=== PATIENT | female | born 1985 | race Caucasian/White ===

== ENCOUNTER → 2018-12-15 17:43 | Outpatient (CLI) | payer MEDICARE, OTHER, SELFPAY ==
[2018-12-15 18:29] LABS: Basophils # 0.1 K/mm3 (0-0.2); Basophils % 0.6 % (0.1-2.0); Eosinophils # 0.4 K/mm3 (0.0-0.4); Eosinophils % 3.2 % (0.1-12.0); Hematocrit 46.3 % (37.0-47.0); Hemoglobin 15.4 g/dL (12.2-16.2); Lymphocytes # 3.3 K/mm3 (0.7-4.5); Lymphocytes % 26.4 % (10-50); Mean Corpuscular HGB Conc 33.3 g/dL (31.8-35.4); Mean Corpuscular Hemoglobin 30.2 pg (27.0-31.2); Mean Corpuscular Volume 90.8 fl (81-99); Mean Platelet Volume 7.6 fl (7.4-10.4); Monocytes # 0.7 K/mm3 (0.1-1.0); Monocytes % 5.3 % (1.7-9.3); Neutrophils # 8.1 K/mm3 (1.8-7.8); Neutrophils % 64.5 % (37.0-80.0); Platelet Count 353 K/mm3 (142-424); Red Cell Distribution Width 12.5 % (11.5-17.5); White Blood Count 12.6 K/mm3 (4.8-10.8)
[2018-12-15 19:29] LABS: Erythrocyte Sedimentation Rate 13 mm/hr (0-20)
[2018-12-15 19:55] LABS: Alanine Aminotransferase 28 U/L (12-78); Albumin Level 4.9 gm/dL (3.4-5.0); Albumin/Globulin Ratio 1.4 (1.1-1.8); Alkaline Phosphatase 70 U/L (46-116); Anion Gap 16.6 mEq/L (5-15); Aspartate Amino Transferase 16 U/L (15-37); Bilirubin,Total 0.5 mg/dL (0.2-1.0); Blood Urea Nitrogen 16 mg/dL (7-18); Calcium 10.2 mg/dL (8.5-10.1); Carbon Dioxide 26 mmol/L (21.0-32.0); Chloride 101 mmol/L (98-107); Estimated Glomerular Filt Rate 72 ml/min (>60); Free T4 (Free Thyroxine) 1.52 ng/dl (0.76-1.46); GFR (African American) 87 ML/MIN (>60); Globulin 3.6 gm/dl (1.3-3.2); Glucose 77 mg/dL (74-106); Potassium 4.6 mmoL/L (3.5-5.1); Sodium 139 mmol/L (136-145); Thyroid Stimulating Hormone 0.01 uIU/ml (0.358-3.740); Total Protein,Serum 8.5 gm/dL (6.4-8.2)
[2018-12-18 11:41] LABS: Vitamin D 25 Hydroxy 26.9 ng/mL (30.0-100.0)
== END ==
PROVIDERS: Visit Provider Emergency Medicine
DX: K59.00 Constipation, unspecified (principal); R10.9 Unspecified abdominal pain; I10 Essential (primary) hypertension
CPT/HCPCS: 80053; 82652; 84439; 84443; 85025; 85651

== ENCOUNTER → 2021-07-19 11:09 | Outpatient (CLI) | payer MEDICARE, OTHER, SELFPAY ==
[2021-07-19 12:13] LABS: Basophils # 0.1 K/mm3 (0-0.2); Basophils % 1.1 % (0.1-2.0); Eosinophils # 0.8 K/mm3 (0.0-0.4); Eosinophils % 7.6 % (0.1-12.0); Hematocrit 46.1 % (37.0-47.0); Hemoglobin 15.8 g/dL (12.2-16.2); Lymphocytes % 29.2 % (10-50); Mean Corpuscular HGB Conc 34.4 g/dL (31.8-35.4); Mean Corpuscular Hemoglobin 31.2 pg (27.0-31.2); Mean Corpuscular Volume 90.8 fl (81-99); Mean Platelet Volume 7.3 fl (7.4-10.4); Monocytes # 0.6 K/mm3 (0.1-1.0); Monocytes % 5.5 % (1.7-9.3); Neutrophils # 5.8 K/mm3 (1.8-7.8); Neutrophils % 56.5 % (37.0-80.0); Platelet Count 303 K/mm3 (142-424); Red Blood Count 5.07 M/mm3 (4.20-5.40); Red Cell Distribution Width 13.2 % (11.5-17.5); White Blood Count 10.3 K/mm3 (4.8-10.8)
[2021-07-19 13:08] LABS: Alanine Aminotransferase 47 U/L (12-78); Albumin Level 4.9 g/dl (3.5-5.0); Albumin/Globulin Ratio 1.8 (1.1-1.8); Alkaline Phosphatase 73 U/L (38-126); Anion Gap 15.3 mEq/L (5-15); Aspartate Amino Transferase 39 U/L (14-36); Bilirubin,Total 0.7 mg/dl (0.2-1.3); Blood Urea Nitrogen 16 mg/dl (7-17); Calcium 9.3 mg/dl (8.4-10.2); Carbon Dioxide 21 mmol/L (22.0-30.0); Chloride 103 mmol/L (98-107); Chol/HDL Ratio 6.5 (1-3.5); Cholesterol 183 mg/dl (140-200); Estimated Glomerular Filt Rate 95 ml/min (>60); GFR (African American) 115 ML/MIN (>60); Globulin 2.8 g/dL (1.3-3.2); Glucose 92 mg/dl (74-100); HDL Cholesterol 28 mg/dl (40-60); Potassium 4.3 mmoL/L (3.5-5.1); Sodium 135 mmol/L (136-145); Total Protein,Serum 7.7 g/dl (6.3-8.2); Triglycerides 251 mg/dl (30-150); VLDL Cholesterol 50 mg/dL (0-40)
[2021-07-19 13:19] LABS: Direct LDL Cholesterol 87.53 mg/dL (100-129)
[2021-07-19 13:39] LABS: Thyroid Stimulating Hormone 2.83 uIU/mL (0.465-4.68)
== END ==
PROVIDERS: PCP Internal Medicine; Visit Provider Internal Medicine
DX: E78.5 Hyperlipidemia, unspecified (principal); G40.909 Epilepsy, unspecified, not intractable, without status epilepticus; E03.9 Hypothyroidism, unspecified; K58.1 Irritable bowel syndrome with constipation
CPT/HCPCS: 36415; 80053; 80061; 84443; 85025

== ENCOUNTER 2021-07-30 21:14 | Emergency (ER) | payer MEDICARE, OTHER, SELFPAY ==
[2021-07-30 21:17] VITALS: BP 127/80; PULSE 83; RESP 16; TEMP 36.8; O2SAT 98; BMI 27.4
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
--- NOTE | 2021-07-30 21:47 | PC.NURSE ---
PT REFUSED IV STICK.
[2021-07-30 21:49] VITALS: BP 119/74; PULSE 75; O2SAT 98
[2021-07-30 21:58] LABS: Microscopic, Urine URINE MICROSCOPIC (MICROSCOPIC)
[2021-07-30 22:00] VITALS: BP 118/77; PULSE 76
[2021-07-30 22:01] LABS: Appearance,Urine CLOUDY (Clear); Bilirubin,Urine Negative (Negative); Blood, Urine 3+ (Negative); Color,Urine YELLOW (Yellow); Glucose,Urine (UA) Negative (Negative); Ketones,Urine Negative (Negative); Leukocyte Esterase,Urine TRACE (Negative); Nitrate,Urine Negative (Negative); Protein,Urine Negative (Negative); Urobilinogen,Urine 0.2 EU/dl (0.2)
[2021-07-30 22:04] LABS: Urine Pregnancy, HCG Qual. Negative (Negative)
[2021-07-30 22:32] LABS: Bacteria,Urine 3+ /lpf
--- NOTE | 2021-07-30 22:33 | PC.NURSE ---
PT REPORTS NO FURTHER COMPLAINTS. FAMILY AT BEDSIDE. WCM.
[2021-07-30 22:35] VITALS: BP 127/78; PULSE 69; O2SAT 98
[2021-07-31 00:23] VITALS: BP 124/81; PULSE 67; RESP 18; TEMP 36.8; O2SAT 98
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
== END 2021-07-31 00:31 | disposition home or self-care (01) ==
PROVIDERS: Emergency Provider Emergency Medicine; PCP Internal Medicine
DX: S06.0X0A Concussion without loss of consciousness, initial encounter (principal); S16.1XXA Strain of muscle, fascia and tendon at neck level, initial encounter; E03.9 Hypothyroidism, unspecified; G40.909 Epilepsy, unspecified, not intractable, without status epilepticus; Z88.0 Allergy status to penicillin; Z79.3 Long term (current) use of hormonal contraceptives; V89.2XXA Person injured in unspecified motor-vehicle accident, traffic, initial encounter
CPT/HCPCS: 70450; 71046; 72125; 72170; 81001; 81025; 87086; 99285

== ENCOUNTER → 2022-09-17 10:36 | Outpatient (CLI) | payer MEDICARE, OTHER, SELFPAY ==
[2022-09-17 11:07] LABS: Basophils # 0.1 K/mm3 (0-0.2); Basophils % 0.8 % (0.1-2.0); Eosinophils # 0.5 K/mm3 (0.0-0.4); Eosinophils % 4.5 % (0.1-12.0); Hematocrit 44.2 % (37.0-47.0); Hemoglobin 14.5 g/dL (12.2-16.2); Lymphocytes # 2.6 K/mm3 (0.7-4.5); Mean Corpuscular HGB Conc 32.8 g/dL (31.8-35.4); Mean Corpuscular Hemoglobin 30.3 pg (27.0-31.2); Mean Corpuscular Volume 92.5 fl (81-99); Monocytes # 0.6 K/mm3 (0.1-1.0); Monocytes % 5.6 % (1.7-9.3); Neutrophils # 7.1 K/mm3 (1.8-7.8); Neutrophils % 65.2 % (37.0-80.0); Platelet Count 297 K/mm3 (142-424); Red Blood Count 4.77 M/mm3 (4.20-5.40); Red Cell Distribution Width 13.2 % (11.5-17.5); White Blood Count 10.9 K/mm3 (4.8-10.8)
[2022-09-17 11:28] LABS: HCG Qualitative, Serum Positive (Negative)
[2022-09-17 11:32] LABS: Alanine Aminotransferase 29 U/L (12-78); Albumin Level 4.7 g/dl (3.5-5.0); Albumin/Globulin Ratio 1.8 (1.1-1.8); Alkaline Phosphatase 59 U/L (38-126); Anion Gap 16.5 mEq/L (5-15); Aspartate Amino Transferase 30 U/L (14-36); Bilirubin,Total 0.6 mg/dl (0.2-1.3); Blood Urea Nitrogen 14 mg/dl (7-17); Calcium 9.2 mg/dl (8.4-10.2); Carbon Dioxide 23 mmol/L (22.0-30.0); Chloride 102 mmol/L (98-107); Estimated Glomerular Filt Rate 81 ml/min (>60); GFR (African American) 98 ML/MIN (>60); Globulin 2.6 g/dL (1.3-3.2); Glucose 93 mg/dl (74-100); Potassium 4.5 mmoL/L (3.5-5.1); Sodium 137 mmol/L (136-145); Total Protein,Serum 7.3 g/dl (6.3-8.2)
[2022-09-17 12:00] LABS: Thyroid Stimulating Hormone 8.06 uIU/mL (0.465-4.68)
== END ==
PROVIDERS: PCP Internal Medicine; Visit Provider Internal Medicine
DX: N91.1 Secondary amenorrhea (principal); K92.0 Hematemesis; E03.9 Hypothyroidism, unspecified
CPT/HCPCS: 36415; 80053; 84443; 84703; 85025

== ENCOUNTER → 2022-09-20 14:23 | Outpatient (CLI) | payer MEDICARE, OTHER, SELFPAY | PROVIDERS: PCP Internal Medicine; Visit Provider Obstetrics & Gynecology | DX: Z34.91 Encounter for supervision of normal pregnancy, unspecified, first trimester (principal) ==

== ENCOUNTER → 2022-09-24 14:02 | Outpatient (CLI) | payer MEDICARE, OTHER, SELFPAY | PROVIDERS: PCP Internal Medicine; Visit Provider Obstetrics & Gynecology | DX: N39.0 Urinary tract infection, site not specified (principal) | CPT/HCPCS: 87086 ==

== ENCOUNTER → 2022-10-11 11:25 | Outpatient (CLI) | payer MEDICARE, OTHER, SELFPAY ==
[2022-10-11 11:50] LABS: Basophils # 0.1 K/mm3 (0-0.2); Basophils % 0.7 % (0.1-2.0); Eosinophils # 0.6 K/mm3 (0.0-0.4); Hematocrit 44.9 % (37.0-47.0); Hemoglobin 14.5 g/dL (12.2-16.2); Lymphocytes # 2.2 K/mm3 (0.7-4.5); Lymphocytes % 21.7 % (10-50); Mean Corpuscular HGB Conc 32.2 g/dL (31.8-35.4); Mean Corpuscular Hemoglobin 29.9 pg (27.0-31.2); Mean Corpuscular Volume 92.8 fl (81-99); Mean Platelet Volume 7.6 fl (7.4-10.4); Monocytes # 0.4 K/mm3 (0.1-1.0); Monocytes % 4.4 % (1.7-9.3); Neutrophils # 6.8 K/mm3 (1.8-7.8); Neutrophils % 67.3 % (37.0-80.0); Platelet Count 300 K/mm3 (142-424); Red Blood Count 4.84 M/mm3 (4.20-5.40); Red Cell Distribution Width 13.2 % (11.5-17.5); White Blood Count 10.1 K/mm3 (4.8-10.8)
[2022-10-11 13:57] LABS: Thyroid Stimulating Hormone 6.91 uIU/mL (0.465-4.68)
[2022-11-25 09:52] LABS: Hepatitis B Surface Antigen Negative; Hepatitis C Antibody Non Reactive
[2022-11-25 09:53] LABS: Rubella Antibodies, IgG 1.56
== END ==
PROVIDERS: PCP Internal Medicine; Visit Provider Obstetrics & Gynecology
DX: E03.9 Hypothyroidism, unspecified; R09.89 Other specified symptoms and signs involving the circulatory and respiratory systems; Z34.91 Encounter for supervision of normal pregnancy, unspecified, first trimester; Z3A.09 9 weeks gestation of pregnancy
CPT/HCPCS: 36415; 84443; 85025; 86762; 86850; 87340; 87380

== ENCOUNTER → 2022-12-27 10:53 | Outpatient (CLI) | payer MEDICARE, OTHER, SELFPAY | PROVIDERS: PCP Internal Medicine; Visit Provider Obstetrics & Gynecology | DX: R09.89 Other specified symptoms and signs involving the circulatory and respiratory systems (principal) | CPT/HCPCS: 36415; 84443 ==

== ENCOUNTER → 2023-01-17 08:14 | Outpatient (CLI) | payer MEDICARE, OTHER, SELFPAY ==
[2023-01-17 08:55] LABS: Basophils # 0.1 K/mm3 (0-0.2); Basophils % 0.5 % (0.1-2.0); Eosinophils # 0.9 K/mm3 (0.0-0.4); Eosinophils % 5.9 % (0.1-12.0); Hematocrit 38.4 % (37.0-47.0); Hemoglobin 12.8 g/dL (12.2-16.2); Lymphocytes % 21.2 % (10-50); Mean Corpuscular HGB Conc 33.2 g/dL (31.8-35.4); Mean Corpuscular Hemoglobin 30.2 pg (27.0-31.2); Mean Corpuscular Volume 91.1 fl (81-99); Mean Platelet Volume 7.9 fl (7.4-10.4); Monocytes # 0.7 K/mm3 (0.1-1.0); Monocytes % 4.6 % (1.7-9.3); Neutrophils # 9.7 K/mm3 (1.8-7.8); Neutrophils % 67.8 % (37.0-80.0); Platelet Count 341 K/mm3 (142-424); Red Blood Count 4.22 M/mm3 (4.20-5.40); Red Cell Distribution Width 13.8 % (11.5-17.5); White Blood Count 14.4 K/mm3 (4.8-10.8)
[2023-01-17 09:21] LABS: Glucose,Fasting 95 mg/dl (74-100)
[2023-01-17 10:40] LABS: Glucose 1 Hour 144 mg/dL (74-100)
== END ==
PROVIDERS: PCP Internal Medicine; Visit Provider Obstetrics & Gynecology
DX: O24.410 Gestational diabetes mellitus in pregnancy, diet controlled; O99.282 Endocrine, nutritional and metabolic diseases complicating pregnancy, second trimester; E03.9 Hypothyroidism, unspecified; O99.352 Diseases of the nervous system complicating pregnancy, second trimester; G40.909 Epilepsy, unspecified, not intractable, without status epilepticus; Z3A.25 25 weeks gestation of pregnancy
CPT/HCPCS: 36415; 82951; 85025

== ENCOUNTER → 2023-01-31 07:32 | Outpatient (CLI) | payer MEDICARE, OTHER, SELFPAY ==
[2023-01-31 08:15] LABS: Glucose,Fasting 100 mg/dl (74-100)
[2023-01-31 09:50] LABS: Glucose 1 Hour 214 mg/dL (74-100)
[2023-01-31 10:21] LABS: Glucose 2 Hour 179 mg/dL (74-100)
[2023-01-31 12:17] LABS: Glucose 3 Hour 123 mg/dL (74-100)
== END ==
PROVIDERS: PCP Internal Medicine; Visit Provider Obstetrics & Gynecology
DX: Z3A.27 27 weeks gestation of pregnancy; O24.419 Gestational diabetes mellitus in pregnancy, unspecified control; O44.42 Low lying placenta NOS or without hemorrhage, second trimester; O99.612 Diseases of the digestive system complicating pregnancy, second trimester; O99.282 Endocrine, nutritional and metabolic diseases complicating pregnancy, second trimester; O99.352 Diseases of the nervous system complicating pregnancy, second trimester; E03.9 Hypothyroidism, unspecified; K58.8 Other irritable bowel syndrome; G40.909 Epilepsy, unspecified, not intractable, without status epilepticus
CPT/HCPCS: 36415; 82951

== ENCOUNTER → 2023-02-21 10:09 | Outpatient (CLI) | payer MEDICARE, OTHER, SELFPAY ==
[2023-02-21 11:43] LABS: Thyroid Stimulating Hormone 1.64 uIU/mL (0.465-4.68)
== END ==
PROVIDERS: PCP Internal Medicine; Visit Provider Obstetrics & Gynecology
DX: R09.89 Other specified symptoms and signs involving the circulatory and respiratory systems (principal); Z34.93 Encounter for supervision of normal pregnancy, unspecified, third trimester; Z3A.30 30 weeks gestation of pregnancy
CPT/HCPCS: 36415; 84443

== ENCOUNTER 2023-03-11 17:12 | Outpatient (CLI) | payer MEDICARE, OTHER, SELFPAY ==
[2023-03-11 17:36] VITALS: BP 130/69; PULSE 94; RESP 18; TEMP 36.6; O2SAT 99; BMI 27.1
--- NOTE | 2023-03-11 18:00 | PC.NURSE ---
pt states she is unable to void at this time d/t voiding prior to coming in,
== END 2023-03-11 18:05 | disposition home or self-care (01) ==
LOC: OBOUT 17:14 → OB 17:15
PROVIDERS: PCP Internal Medicine; Visit Provider Obstetrics & Gynecology
DX: O26.893 Other specified pregnancy related conditions, third trimester (principal); Z3A.33 33 weeks gestation of pregnancy
CPT/HCPCS: 59025

== ENCOUNTER 2023-03-18 17:23 | Outpatient (CLI) | payer MEDICARE, OTHER, SELFPAY ==
[2023-03-18 17:41] VITALS: BP 110/77; PULSE 77; RESP 18; TEMP 36.8; O2SAT 99; BMI 26.9
== END 2023-03-18 18:26 | disposition home or self-care (01) ==
LOC: OBOUT 17:26 → OB 17:26
PROVIDERS: PCP Internal Medicine; Visit Provider Obstetrics & Gynecology
DX: O26.893 Other specified pregnancy related conditions, third trimester (principal); Z3A.34 34 weeks gestation of pregnancy
CPT/HCPCS: 59025; G0463

== ENCOUNTER 2023-03-21 10:28 | Outpatient (CLI) | payer MEDICARE, OTHER, SELFPAY ==
[2023-03-21 10:39] VITALS: BMI 26.9
[2023-03-21 10:51] VITALS: BP 110/76; PULSE 80; RESP 16; TEMP 36.6; O2SAT 95; BMI 26.9
== END 2023-03-21 11:14 | disposition home or self-care (01) ==
LOC: OBOUT 10:30 → OB 10:31
PROVIDERS: PCP Internal Medicine; Visit Provider Obstetrics & Gynecology
DX: O26.893 Other specified pregnancy related conditions, third trimester (principal); Z3A.34 34 weeks gestation of pregnancy
CPT/HCPCS: 59025; G0463

== ENCOUNTER 2023-03-25 17:13 | Outpatient (CLI) | payer MEDICARE, OTHER, SELFPAY ==
[2023-03-25 17:39] VITALS: BP 110/78; PULSE 80; RESP 18; TEMP 36.7; O2SAT 99; BMI 26.9
== END 2023-03-25 18:10 | disposition home or self-care (01) ==
LOC: OBOUT 17:17 → OB 17:18
PROVIDERS: PCP Internal Medicine; Visit Provider Obstetrics & Gynecology
DX: O26.893 Other specified pregnancy related conditions, third trimester (principal); Z3A.35 35 weeks gestation of pregnancy
CPT/HCPCS: 59025; G0463

== ENCOUNTER 2023-04-01 10:26 | Inpatient (IN) | payer MEDICARE, OTHER, SELFPAY ==
[2023-04-01 08:29] VITALS: BMI 27.1
[2023-04-01 08:57] VITALS: BMI 27.1
[2023-04-01 09:12] LABS: Fetal Membrane Rupture (Rapid) Positive (Negative)
--- NOTE | 2023-04-01 10:31 | P.HP_ITS ---
History of Present Illness *Admission Date: 04/01/23 *Reason for visit:: premature rupture of membranes *History of present illness: Rula is a 37-year-old G2, P1 who presented to labor and delivery with leakage of fluid. AmniSure was found to be positive. On presentation the patient was 36 weeks and 0 days gestation based on 9-week ultrasound. She received her care with Dr. Cevallos and was complicated by GDMA2, depression, epilepsy, hypothyroidism, and IBS. On presentation patient endorsed good movement and denies any vaginal bleeding. B+, antibody negative, rubella immune, hepatitis B negative, hepatitis C negative 1 hour GTT: 144 3hr: 100/214/179/123 GBS unknown PFSH PFSH Disclaimer: The information contained in this section may have been updated after the patient was seen, as this information can be updated by other users. Medical History (Updated 04/02/23 @ 00:53 by Sherri Gonzalez DO) AMA (advanced maternal age) multigravida 35+ Depression affecting Epilepsy affecting Gestational diabetes mellitus Hypothyroidism affecting Irritable bowel syndrome during Low lying placenta nos or without hemorrhage, second trimester Surgical History History of tonsillectomy Family History Other Anemia Asthma Cancer Diabetes Heart attack Hyperlipidemia Hypertension Thyroid disorder Social History (Updated 04/01/23 @ 14:15 by Heather Romero RN) Smoking Status: Never smoker alcohol intake: never substance use type: denies use current occupational status: unemployed Travel in the last 8 weeks: None Review of Systems Review of Systems Review of systems (narrative): Review of Systems Constitutional: Denies fever, chills, and sweats Eyes: Denies vision change/ pain Respiratory: Denies cough and shortness of breath Cardiovascular: Denies chest pain and lightheadedness Gastrointestinal: denies abdominal pain or contractions. Denies nausea, vomiting. Genitourinary: Denies dysuria and incontinence. endorses LOF Musculoskeletal: Denies shoulder pain and back pain Neurological: Denies change in speech or headaches Meds Home Medications and Allergies Home Medications Medication Instructions Recorded Confirmed Type aspirin 81 mg tablet,delayed 81 mg PO DAILY #30 tabs 09/24/22 04/01/23 Rx release (Adult Low Dose Aspirin) folic acid 1 mg tablet 1 mg PO BID 09/24/22 04/01/23 History vits no.126-ferrous fum 1 tab PO DAILY #30 tabs 09/24/22 04/01/23 Rx 28 mg iron-folic acid 800 mcg tablet (Classic ) levothyroxine 125 mcg tablet 125 mcg PO DAILY #30 tabs 10/14/22 04/01/23 Rx (Synthroid) lamotrigine 100 mg tablet 100 mg PO BID Epilepsy 11/01/22 04/01/23 History blood-glucose meter #1 ea 01/31/23 04/01/23 Rx metformin 500 mg tablet,extended 500 mg PO .with dinner #30 tabs 03/28/23 04/01/23 Rx release 24 hr New Prescriptions to Start Prescriptions: Allergies Allergy/AdvReac Type Severity Reaction Status Date / Time montelukast [From Singulair] Allergy Mild Rash Verified 03/28/23 10:19 Penicillins Allergy Unknown Unknown Verified 04/01/23 10:33 allergy reaction Exam Data for Last 24 hours Vital signs and Labs for Last 24 Hours: Laboratory Results - last 24 hr 04/01/23 08:47: Membrane Rupture Positive A I & O for Last 24 hours: Intake & Output 03/29/23 03/30/23 03/31/23 04/01/23 23:59 23:59 23:59 23:59 Weight 163 lb Narrative: General: patient is alert oriented in no acute distress and responds appropriately to questions. HEENT: NCAT, EOMI, moist mucous membranes, neck supple with full ROM Cardiovascular: RRR +S1/S2, no murmurs or rubs Pulmonary: Clear to auscultation bilaterally, nonlabored breathing, symmetric chest rise Abdominal: Gravid abdomen appropriate for gestation. No guarding, rebound, or tenderness noted. SVE on admission: closed, thick, posterior, firm. Extremities: no edema, no tenderness or cyanosis noted Skin: Normal turgor, intact, warm. Negative for erythema, pallor, petechia, or lesions Neurologic: Negative for sensory or motor deficit Psychiatric: Normal affect, normal thought process, good judgment and insight, no depression or anxious mood appreciated. *Routine HEENT Exam Head: Present normocephalic and atraumatic Eye: Present EOMI, PERRL and normal accommodation; Absent conjunctival icterus, scleral injection, nystagmus or exophthalmos ENT: Present mucous membranes moist *Routine Respiratory Exam Respiratory: Present CTA bilaterally, normal respiratory effort, able to speak in complete sentences and symmetric chest movement; Absent accessory muscle use, decreased breath sounds, rales, respiratory distress, wheezes, distant breath sounds or diminished air movement *Routine Cardiovascular Exam Cardiovascular: Present RRR, Normal S1 and Normal S2; Absent murmur or gallop *Routine Abdominal Exam Abdominal: Present soft and normoactive bowel sounds; Absent tenderness, distended, rebound or guarding *Routine Rectal Exam Rectal:: deferred *Routine Genitalia Exam Genitalia:: normal female Assessment and Plan *Assessment and plan (1) Depression affecting : Status: Acute Category: Medical Code(s): O99.340 - Other mental disorders complicating , unspecified trimester; F32.A - Depression, unspecified (2) Gestational diabetes mellitus: Problem Comment: Metformin 500 mg at dinner time started 03/28/20 Status: Acute Category: Medical Code(s): O24.419 - Gestational diabetes mellitus in , unspecified control (3) Irritable bowel syndrome during : Status: Acute Category: Medical Code(s): O99.619 - Diseases of the digestive system complicating , unspecified trimester; K58.9 - Irritable bowel syndrome without diarrhea (4) Hypothyroidism affecting : Status: Acute Qualifiers: Trimester: first trimester Qualified Code(s): O99.281 - Endocrine, nutritional and metabolic diseases complicating , first trimester; E03.9 - Hypothyroidism, unspecified Category: Medical Code(s): O99.280 - Endocrine, nutritional and metabolic diseases complicating , unspecified trimester; E03.9 - Hypothyroidism, unspecified (5) Epilepsy affecting : Status: Acute Qualifiers: Trimester: first trimester Qualified Code(s): O99.351 - Diseases of the nervous system complicating , first trimester; G40.909 - Epilepsy, unspecified, not intractable, without status epilepticus Category: Medical Code(s): O99.350 - Diseases of the nervous system complicating , unspecified tri mester; G40.909 - Epilepsy, unspecified, not intractable, without status epilepticus (6) AMA (advanced maternal age) multigravida 35+: Status: Acute Qualifiers: Trimester: first trimester Qualified Code(s): O09.521 - Supervision of elderly multigravida, first trimester Category: Medical Code(s): O09.529 - Supervision of elderly multigravida, unspecified trimester (7) : Status: Acute Category: Medical Code(s): Z34.90 - Encounter for supervision of normal , unspecified, unspecified trimester (8) Premature rupture of membranes: Status: Acute Category: Medical Code(s): O42.90 - Premature rupture of membranes, unspecified as to length of time between rupture and onset of labor, unspecified weeks of gestation Plan #Premature rupture of membranes #36weeks gestation #AMA - Monitor vitals - Admit to L&D for induction of labor - Plan for induction with 25mcg of PO cytotec [id number] per protocol - External FHR and TOCO monitor - Blood type: B+ - Initiate GBS prophylaxis with Ancef (PCN allergy) 1g q8hrs per protocol secondary to gestational age <37weeks - Hemoglobin: 12.6, Plt: 312 - Plan for epidural - Anticipate vaginal delivery of female infant: Joan Aj - HIV and RPR labs ordered #Gestational diabetes -Continue accuchecks [id number] then q2 in active labor (at 6cm) -Plan for a 6wk 2hr 75g GTT -Will discontinue accuchecks and metformin #Depression -Well controlled at this time -EDPS prior to discharge -Screen at 2wk visit -Admission Nurse Coordinator on baby blues and depression prior to discharge #IBS -Well controlled at this time #Hypothyroidism -Continue current home medication #Epilepsy -Continue current home medication
--- NOTE | 2023-04-01 10:42 | US_ITS ---
PROCEDURE: US OB LIMITED POSITION CLINICAL INDICATION: Rupture of Membranes COMPARISON: No exams were available for comparison FINDINGS: Limited transabdominal sonographic images of the pelvis were obtained. The following parameters are obtained: From her established due date she is 36weeks 0 days Viable fetus in the cephalic presentation. heart rate: 133bpm bpm. IMPRESSION: 1. Fetus in the cephalic presentation. 2. heart tones are present. Dictated by: Chuy Huang MD 04/02/2023 10:33 Chuy Huang MD in OV 04/02/2023 10:33
[2023-04-01 11:21] LABS: Microscopic, Urine URINE MICROSCOPIC (MICROSCOPIC)
[2023-04-01 11:24] LABS: Appearance,Urine SL CLOUDY (Clear); Bilirubin,Urine Negative (Negative); Blood, Urine 2+ (Negative); Color,Urine YELLOW (Yellow); Glucose,Urine (UA) Negative (Negative); Ketones,Urine Negative (Negative); Leukocyte Esterase,Urine TRACE (Negative); Nitrate,Urine Negative (Negative); Protein,Urine Negative (Negative); Specific Gravity, Urine 1.015 (1.005-1.030); Urobilinogen,Urine 0.2 EU/dl (0.2)
[2023-04-01 11:26] LABS: Basophils # 0.1 K/mm3 (0-0.2); Basophils % 0.4 % (0.1-2.0); Eosinophils # 0.6 K/mm3 (0.0-0.4); Eosinophils % 4.1 % (0.1-12.0); Hematocrit 35.6 % (37.0-47.0); Hemoglobin 12.6 g/dL (12.2-16.2); Lymphocytes # 2.5 K/mm3 (0.7-4.5); Lymphocytes % 16.2 % (10-50); Mean Corpuscular HGB Conc 35.3 g/dL (31.8-35.4); Mean Corpuscular Hemoglobin 31.3 pg (27.0-31.2); Mean Corpuscular Volume 88.7 fl (81-99); Mean Platelet Volume 7.1 fl (7.4-10.4); Monocytes # 0.7 K/mm3 (0.1-1.0); Monocytes % 4.5 % (1.7-9.3); Neutrophils # 11.6 K/mm3 (1.8-7.8); Neutrophils % 74.8 % (37.0-80.0); Platelet Count 312 K/mm3 (142-424); Red Blood Count 4.02 M/mm3 (4.20-5.40); Red Cell Distribution Width 14.3 % (11.5-17.5); White Blood Count 15.6 K/mm3 (4.8-10.8)
[2023-04-01] MEDS: LACTATED RINGERS 1000ML 1,000 ML 250 ML IV (11:29)
[2023-04-01] MEDS: miSOPROStol 100MCG TABLET 25 MCG PO ×2 (11:30→15:40)
[2023-04-01] MEDS: DEXTROSE 5%-LACTATED RINGERS 1,000 ML 125 ML IV ×2 (11:30→19:51)
[2023-04-01 11:33] LABS: Squamous Epithelial Cell,Urine Occasional #/hpf (0-5); WBC,Urine Occasional #/hpf (0-3)
[2023-04-01 11:34] LABS: Bacteria,Urine Trace /lpf
[2023-04-01 11:36] LABS: MANUAL DIFFERENTIAL MANUAL DIFFERENTIAL (MANUAL DIFF)
[2023-04-01 11:43] LABS: Glucose,Random 83 mg/dL (74-100)
[2023-04-01] MEDS: CEFAZOLIN SODIUM 2 GM in 0.9 % SODIUM CHLORIDE 100 ML IV (12:00)
[2023-04-01 12:07] LABS: Eosinophils % 5 % (0-3); Lymphocytes % 20 % (10-50); Monocytes % 5 % (2-9); Neutrophils % 70 % (42-76); Platelet Estimate Normal; RBC Morphology Normal; Total Cells Counted 100
[2023-04-01] MEDS: BUTORPHANOL TARTRATE 1 MG/ML VIAL IV (15:11)
[2023-04-01 16:58] LABS: POC Glucose,Bedside 100 (70-110)
--- NOTE | 2023-04-01 19:24 | P.PNANES_ITS ---
[facility] Disclaimer: The information contained in this section may have been updated after the patient was seen, as this information can be updated by other users. Medical History AMA (advanced maternal age) multigravida 35+ Depression affecting Epilepsy affecting Gestational diabetes mellitus Hypothyroidism affecting Irritable bowel syndrome during Low lying placenta nos or without hemorrhage, second trimester Surgical History History of tonsillectomy Family History Other Anemia Asthma Cancer Diabetes Heart attack Hyperlipidemia Hypertension Thyroid disorder Social History (Updated 04/01/23 @ 14:15 by Heather Romero RN) Smoking Status: Never smoker alcohol intake: never substance use type: denies use current occupational status: unemployed Travel in the last 8 weeks: None [facility] Anesthesia Checklist Patient Identification Patient Identification: Arm Band Structural Data Admitted From: Inpatient Planned Operative Procedure/s: Labor Epidural Consent for Planned Operative Procedure(s) Verified: Yes Verified Documents: Surgical Consent and History and Physical Additional verifications Anesthesia Reactions: No Airway Assessment Mallampati Score:: Class II C-Spine Mobility Assessed: Yes TMJ Mobility Assessed: Yes Dentition: Good Dentition Neurological Assessment Level of Consciousness: Awake and Alert Anesthesia Plan Anesthesia Risk discussed: Yes Anesthesia Plan: Verified ASA Class: II Anesthesia Type: Epidural
[2023-04-01 20:58] LABS: POC Glucose,Bedside 96 (70-110)
[2023-04-01] MEDS: lamoTRIgine 100MG TABLET 100 MG PO (20:59)
[2023-04-01] MEDS: CEFAZOLIN SODIUM 1 GM in 0.9 % SODIUM CHLORIDE 50 ML IV (20:59)
[2023-04-01 21:06] LABS: Barbiturates Screen,Urine Negative ng/ml (<200); Benzodiazepines Screen,Urine Negative ng/ml (<200)
[2023-04-01 21:07] LABS: Amphetamine/Metha Screen,Urine Negative ng/ml (<1000)
[2023-04-01 21:08] LABS: Cannabinoid Screen,Urine Negative ng/ml (<50); Methadone Screen,Urine Negative ng/ml (<300)
[2023-04-01 21:09] LABS: Cocaine Screen,Urine Negative ng/ml (<300)
[2023-04-01 21:11] LABS: Phencyclidine Screen,Urine Negative ng/ml (<25)
[2023-04-01 21:12] LABS: Opiate Screen,Urine Negative ng/ml (<300)
[2023-04-01 22:58] LABS: POC Glucose,Bedside 104 (70-110)
[2023-04-02 00:32] LABS: Cord Blood PH 7.35 (7.35-7.45)
[2023-04-02] MEDS: OXYTOCIN/RINGERS LACTATE 30 UNITS/500 ML BAG 40 UNITS IV (00:45)
--- NOTE | 2023-04-02 00:59 | EXP.DN ---
Delivery Note Delivery Date:: 04/02/23 Delivery Time:: 00:21 Anesthesia Type: Epidural Was labor medically induced?: Yes Induction method: per misoprostol protocol Gestational age (weeks): 36 Infant delivered prior to 39 weeks?: Yes Justification for early elective delivery:: Premature ROM Gender: Female at 1 minute: 8 at 5 minutes: 9 Delivery Procedure:: Preoperative diagnosis: 1. at 36 completed this weeks gestation, vertex 2. Rh positive 3. GBS unknown 4. Premature rupture of membranes 5. Gestational diabetes-controlled with metformin 6. Kkdkurcx-gnaw-lqahimhytw medication 7. Depression 8. Hypothyroidism 9. Advanced maternal age 10. Irritable bowel syndrome Postoperative diagnosis: 1. at 36 completed this weeks gestation, vertex 2. Rh positive 3. GBS unknown 4. Premature rupture of membranes 5. Gestational diabetes-controlled with metformin 6. Zihatmcg-qhzh-yufobwtars medication 7. Depression 8. Hypothyroidism 9. Advanced maternal age 10. Irritable bowel syndrome EBL: 250mL Specimen: 1. Cord blood 2. Venous cord gas 3. Placenta Findings: 1. Liveborn viable female infant: Joan Aj. Apgars 8/9 at 1 and 5 minutes respectively. Weight pending at time of dictation 2. First degree midline perineal laceration Complications: None Patient was admitted to labor and delivery secondary to premature rupture of membranes. She was given p.o. Cytotec cervical ripening. She received 2 doses of Cytotec and tolerated that well. She received an epidural for anesthesia. She progressed to complete on her own without further augmentation. The was noted to be in the direct OA position. With effective maternal pushing there was a nonoperative spontaneous vaginal delivery at 0021. There was a nuchal cord x2 that was reduced without difficulty. The anterior right shoulder delivered, followed by the posterior shoulder without dystocia. The body and lower extremities delivered without difficulty. The was bulb suctioned and was crying immediately following delivery. The was placed on the maternal abdomen and greater than one minute was appreciated for delayed cord clamping. The umbilical cord was doubly clamped and cut. Cord blood and venous cord gas was collected and sent for routine testing. The placenta delivered with cord traction and suprapubic contertraction. Pitocin was started and the placenta and cord were inspected. The placenta was noted to be intact, with a 3 vessel cord. The uterus was firm and bleeding was minimal. The perineum, vaginal evans, cervix, and paraurethral area were inspected thoroughly. There was a first-degree midline perineal laceration. The laceration was repaired in the usual fashion using 2-0 Vicryl suture. The laceration was hemostatic. This concluded the delivery. The patient was counseled regarding the events of the delivery and repair. The patient tolerated the delivery well. All counts were correct by nursing. Mother and were bonding and doing well upon my leaving the delivery room. Placental Delivery Description: Spontaneous
[2023-04-02] MEDS: LEVOTHYROXINE 125MCG (0.125MG) TAB 125 MCG PO (06:35)
[2023-04-02] MEDS: lamoTRIgine 100MG TABLET 100 MG PO ×2 (12:22→21:08)
[2023-04-02] MEDS: ACETAMINOPHEN 500MG TAB 1000 MG PO ×2 (14:12→21:08)
[2023-04-02] MEDS: IBUPROFEN 400 MG TABLET 800 MG PO ×2 (14:12→21:06)
[2023-04-03 06:09] LABS: Basophils # 0.1 K/mm3 (0-0.2); Basophils % 0.9 % (0.1-2.0); Eosinophils # 0.9 K/mm3 (0.0-0.4); Eosinophils % 6.7 % (0.1-12.0); Hematocrit 34.8 % (37.0-47.0); Hemoglobin 11.8 g/dL (12.2-16.2); Lymphocytes # 3.4 K/mm3 (0.7-4.5); Lymphocytes % 27.3 % (10-50); Mean Corpuscular Hemoglobin 30.5 pg (27.0-31.2); Mean Corpuscular Volume 89.8 fl (81-99); Monocytes # 0.8 K/mm3 (0.1-1.0); Monocytes % 6.6 % (1.7-9.3); Neutrophils # 7.4 K/mm3 (1.8-7.8); Neutrophils % 58.4 % (37.0-80.0); Platelet Count 263 K/mm3 (142-424); Red Blood Count 3.87 M/mm3 (4.20-5.40); Red Cell Distribution Width 14.6 % (11.5-17.5); White Blood Count 12.6 K/mm3 (4.8-10.8)
[2023-04-03] MEDS: LEVOTHYROXINE 125MCG (0.125MG) TAB 125 MCG PO (06:42)
[2023-04-03] MEDS: lamoTRIgine 100MG TABLET 100 MG PO ×2 (08:54→20:30)
--- NOTE | 2023-04-03 09:29 | P.PN_ITS ---
Subjective *Date: 04/03/23 *Time: 09:29 Interval history: PPD # 1 s/p Feeling well. Pain controlled. Formula feeding. Lochia appropriate. Voiding without difficulty and passing flatus. Tolerating regular diet. No fever/chills, chest pain and shortness of breath. No headaches, vision changes, lightheadedness/dizziness. Medical Exam Vital signs and Labs for Last 24 Hours: Laboratory Results - last 24 hr 04/03/23 05:17: WBC 12.6 H, RBC 3.87 L, Hgb 11.8 L, Hct 34.8 L, MCV 89.8, MCH 30.5, MCHC 34.0, RDW 14.6, Plt Count 263, MPV 8.0, Neut % (Auto) 58.4, Lymph % (Auto) 27.3, [place] % (Auto) 6.6, Eos % (Auto) 6.7, Baso % (Auto) 0.9, Neut # (Auto) 7.4, Lymph # (Auto) 3.4, [place] # (Auto) 0.8, Eos # (Auto) 0.9 H, Baso # (Auto) 0.1 I & O for Labs for Last 24 Hours: Intake & Output 03/31/23 04/01/23 04/02/23 04/03/23 23:59 23:59 23:59 23:59 Weight 163 lb Head: Present atraumatic and normocephalic ENT: Present normal exam Neck: Present normal inspection and full ROM Respiratory: Present CTA bilaterally and normal respiratory effort Cardiac: Present Reg Rate and Rhythm GI: Present soft and normal bowel sounds; Absent distention or tenderness Comments:: Uterine fundus firm and below umbilicus Rectal (female): Present deferred (female): Present deferred Extremities: Present normal inspection and full ROM; Absent edema or calf tenderness Neuro: Present alert, awake, oriented x 3 and moves all extremities Assessment and Plan *Assessment and plan (1) Status post vaginal delivery: Status: Acute Category: Surgical (2) Premature rupture of membranes: Status: Acute Category: Medical Code(s): O42.90 - Premature rupture of membranes, unspecified as to length of time between rupture and onset of labor, unspecified weeks of gestation (3) Gestational diabetes mellitus: Status: Acute Category: Medical Code(s): O24.419 - Gestational diabetes mellitus in , unspecified control (4) Irritable bowel syndrome during : Status: Acute Category: Medical Code(s): O99.619 - Diseases of the digestive system complicating , unspecified trimester; K58.9 - Irritable bowel syndrome without diarrhea (5) Hypothyroidism affecting : Status: Acute Qualifiers: Trimester: first trimester Qualified Code(s): O99.281 - Endocrine, nutritional and metabolic diseases complicating , first trimester; E03.9 - Hypothyroidism, unspecified Category: Medical Code(s): O99.280 - Endocrine, nutritional and metabolic diseases complicating , unspecified trimester; E03.9 - Hypothyroidism, unspecified (6) Depression affecting : Status: Acute Category: Medical Code(s): O99.340 - Other mental disorders complicating , unspecified trimester; F32.A - Depression, unspecified (7) Epilepsy affecting : Status: Acute Qualifiers: Trimester: first trimester Qualified Code(s): O99.351 - Diseases of the nervous system complicating , first trimester; G40.909 - Epilepsy, unspecified, not intractable, without status epilepticus Category: Medical Code(s): O99.350 - Diseases of the nervous system complicating , unspecified trimester; G40.909 - Epilepsy, unspecified, not intractable, without status epilepticus (8) AMA (advanced maternal age) multigravida 35+: Status: Acute Qualifiers: Trimester: first trimester Qualified Code(s): O09.521 - Supervision of elderly multigravida, first trimester Category: Medical Code(s): O09.529 - Supervision of elderly multigravida, unspecified trimester Plan Continue routine care Encouraged increased ambulation Plan d/c home PPD # 2
[2023-04-03 11:15] LABS: Rapid Plasma Reagin Ab Titer Non Reactive titer (NonRea<1:1)
[2023-04-03] MEDS: ACETAMINOPHEN 500MG TAB 1000 MG PO (13:47)
[2023-04-03] MEDS: IBUPROFEN 400 MG TABLET 800 MG PO (13:47)
--- NOTE | 2023-04-03 15:47 | CARE MANAGER ---
Met with patient to discuss resources available at discharge. She and her S/O stated that they thought they had everything that they needed. [facility] for [facility] services once discharged. I gave them the resource list for future use if needed.
[2023-04-03 20:00] VITALS: BP 136/75; PULSE 69; RESP 17; TEMP 36.7; O2SAT 97
[2023-04-04 03:50] VITALS: BP 126/71; PULSE 71; RESP 18; TEMP 36.6; O2SAT 99
[2023-04-04] MEDS: LEVOTHYROXINE 125MCG (0.125MG) TAB 125 MCG PO (06:00)
[2023-04-04 06:13] LABS: HIV Screen 4th Generation wRfx Non Reactive (Non Reactive)
--- NOTE | 2023-04-04 08:55 | P.DS_ITS ---
General Admission date:: 04/01/23 Discharge date: 04/04/23 HPI HPI HPI: PPD # 2 s/p Feeling well. Pain controlled. Appropriate lochia. Formula feeding. Voiding without difficulty and passing flatus. Tolerating regular diet. No fever/chills, chest pain or shortness of breath. No headaches, vision changes, lightheadedness/dizziness. No swelling. Ambulating well ad susy. Hospital Course Hospital Course Hospital Course: Ms Rula Peters is a 37-year-old at 36 weeks 0 days admitted to [facility] labor and delivery for premature rupture of membranes. Amnisure positive. She had good care. complicated by GDM, IBS, Hypothyroidism, Epilepsy and Advanced maternal age. GBS unknown. She had a normal vaginal delivery on 04/02/23 at 0021. She delivered a live female baby, Joan Aj, weighing 5 lb 9 oz. Apgars 8/9 at 1 and 5 minutes respectively. EBL 250 mL. She did well . Pain controlled. Appropriate lochia. Formula feeding. Voiding without difficulty and passing flatus. Tolerating regular diet. No fever/chills, chest pain or shortness of breath. No headaches, vision changes, lightheadedness/dizziness. Vital signs stable, afebrile. Heart regular rate and rhythm. Lungs clear to auscultation. Abdomen soft, nontender. No lower extremity edema. Ambulating well ad susy. She was discharged home on PPD #2 with instructions to follow-up in the office in 2 weeks or sooner if needed. Exam Data for Last 24 hours Vital signs and Labs for Last 24 Hours: Temp Pulse Resp BP Pulse Ox O2 Del Method 97.9 F 71 18 126/71 99 Room Air 04/04/23 03:50 04/04/23 03:50 04/04/23 03:50 04/04/23 03:50 04/04/23 03:50 04/04/23 03:50 Laboratory Results - last 24 hr 04/02/23 02:15: RPR Titer Non reactive, HIV 1&2 Ag/Ab, 4th Gen Non reactive I & O for Last 24 hours: Intake & Output 04/01/23 04/02/23 04/03/23 04/04/23 23:59 23:59 23:59 23:59 Weight 163 lb Constitutional Constitutional: no acute distress and cooperative *Routine HEENT Exam Head: Present normocephalic and atraumatic Eye: Absent conjunctivae pink ENT: Present mucous membranes moist *Routine Neck Exam Neck: Present full ROM *Routine Respiratory Exam Respiratory: Present CTA bilaterally and normal respiratory effort *Routine Cardiovascular Exam Cardiovascular: Present RRR *Routine Abdominal Exam Abdominal: Present soft; Absent tenderness or distended Comments: Uterine fundus firm and below umbilicus *Routine Rectal Exam Patient deferred: visual exam *Routine Exam Patient deferred: external exam *Routine Extremities Exam Extremities: Present full ROM; Absent edema or calf tenderness *Routine Neurological Exam Neurological: Present alert, oriented X3 and moving all extremities Routine Psychiatric Exam Psychiatric: Present normal affect and cooperative Results Data Completed and Pending Labs on day of discharge: Labs from last 24 hours 04/02/23 02:15 RPR Titer Non reactive HIV 1&2 Ag/Ab, 4th Gen Non reactive DS: Diagnosis Discharge Diagnosis (1) Status post vaginal delivery: Status: Acute (2) Premature rupture of membranes: Status: Acute Code(s): O42.90 - Premature rupture of membranes, unspecified as to length of time between rupture and onset of labor, unspecified weeks of gestation (3) Gestational diabetes mellitus: Status: Acute Code(s): O24.419 - Gestational diabetes mellitus in , unspecified control (4) Irritable bowel syndrome during : Status: Acute Code(s): O99.619 - Diseases of the digestive system complicating , unspecified trimester; K58.9 - Irritable bowel syndrome without diarrhea (5) Hypothyroidism affecting : Status: Acute Code(s): O99.280 - Endocrine, nutritional and metabolic diseases complicating , unspecified trimester; E03.9 - Hypothyroidism, unspecified Qualifiers: Trimester: first trimester Qualified Code(s): O99.281 - Endocrine, nutritional and metabolic diseases complicating , first trimester; E03.9 - Hypothyroidism, unspecified (6) Depression affecting : Status: Acute Code(s): O99.340 - Other mental disorders complicating , unspecified trimester; F32.A - Depression, unspecified (7) Epilepsy affecting : Status: Acute Code(s): O99.350 - Diseases of the nervous system complicating , unspecified trimester; G40.909 - Epilepsy, unspecified, not intractable, without status epilepticus Qualifiers: Trimester: first trimester Qualified Code(s): O99.351 - Diseases of the nervous system complicating , first trimester; G40.909 - Epilepsy, unspecified, not intractable, without status epilepticus (8) AMA (advanced maternal age) multigravida 35+: Status: Acute Code(s): O09.529 - Supervision of elderly multigravida, unspecified trimester Qualifiers: Trimester: first trimester Qualified Code(s): O09.521 - Supervision of elderly multigravida, first trimester Meds Home Medications and Allergies Home Medications Medication Instructions Recorded Confirmed Type levothyroxine 125 mcg tablet 125 mcg PO DAILY #30 tabs 10/14/22 04/01/23 Rx (Synthroid) lamotrigine 100 mg tablet 100 mg PO BID Epilepsy 11/01/22 04/01/23 History blood-glucose meter #1 ea 01/31/23 04/01/23 Rx sertraline 50 mg tablet 50 mg PO DAILY 04/02/23 04/02/23 History ibuprofen 800 mg tablet 800 mg PO Q8H PRN pain #20 tabs 04/04/23 Rx New Prescriptions to Start Prescriptions: Ivette Oliveros Allergies Allergy/AdvReac Type Severity Reaction Status Date / Time montelukast [From Singulair] Allergy Mild Rash Verified 03/28/23 10:19 Penicillins Allergy Unknown Unknown Verified 04/01/23 10:33 allergy reaction Discharge Plan Disposition Patient Disposition: Home, Self-Care Condition: Good Discharge Order Discharge Orders: Discharge Order (Routine); Ordered 04/04/23 Ordered By: Ivette Alexander Follow up Plan Follow up with: Ivette Alexander DO [Staff Physician] - 04/18/23 11:00 am Prescriptions/Medication Reconciliation: New ibuprofen 800 mg tablet 800 mg PO Q8H PRN (Reason: pain) Qty: 20 0RF Continued lamotrigine 100 mg tablet 100 mg PO BID (DME) blood-glucose meter Kit See Rx Instructions .Route Qty: 1 0RF Rx Instructions: check glucose fasting AM, and 30 min after each meal levothyroxine [Synthroid] 125 mcg tablet 125 mcg PO DAILY Qty: 30 1RF sertraline 50 mg tablet 50 mg PO DAILY Patient Comments: TAKE 1 TABLET BY MOUTH ONCE DAILY Discontinued folic acid 1 mg tablet 2 mg PO DAILY Patient Comments: TAKE 2 TABLETS BY MOUTH ONCE DAILY Classic 28 mg iron- 800 mcg tablet 1 tab PO DAILY Qty: 30 11RF aspirin [Adult Low Dose Aspirin] 81 mg tablet,delayed release (DR/EC) 81 mg PO DAILY Qty: 30 8RF metformin 500 mg tablet extended release 24 hr 500 mg PO QPMWITHMEAL Problem Reconciliation Problems Reviewed?: Yes Patient Discharge Instructions DIET: continue same diet and regular diet Additional Instructions: Discharge: 1. Take 800 mg Ibuprofen every 8 hours as needed for pain. You can also take 500-1000 mg of Tylenol in between doses, every 6-8 hours. 2. Nothing in the vagina for 6 weeks - no intercourse, douching or tampons. No tub baths/hot tubs or swimming pools 3. Reasons to return to L&D or call On-Call doctor - fever (greater than 100.4) - heavy vaginal bleeding (soaking through 1 pad in less than 2 hours) - vaginal discharge (malodorous and/or purulent) - severe headaches not resolved by medication or rest and leg tenderness/edema 4. depression/blues - Normal to feel anxious/overwhelmed for first 2 weeks - Talk to your doctor if: severe anxiety, trouble bonding with baby, withdrawing from other family members, thoughts of harming yourself or others Ivette Alexander DO [facility] [phone] Patient Instructions: Depression, Hemorrhage, DI for Labor and Delivery, Vaginal , DI for Pre-eclampsia, [facility] Post Discharge Instructions Providers Primary Care Provider: Erick Ku Admit Provider: Sherri Gonzalez Attending Provider: Sherri Gonzalez
[2023-04-04] MEDS: lamoTRIgine 100MG TABLET 100 MG PO (09:09)
== END 2023-04-04 15:35 | disposition home or self-care (01) | DRG 807 ==
LOC: OBOUT 10:27 → OB 10:27
PROVIDERS: Obstetrics & Gynecology; Admitting Provider Obstetrics & Gynecology; PCP Internal Medicine; Visit Provider Obstetrics & Gynecology
DX: O99.344 Other mental disorders complicating childbirth (principal); Z37.0 Single live birth; O70.0 First degree perineal laceration during delivery; O69.81X0 Labor and delivery complicated by cord around neck, without compression, not applicable or unspecified; F32.A Depression, unspecified; O42.92 Full-term premature rupture of membranes, unspecified as to length of time between rupture and onset of labor; Z3A.36 36 weeks gestation of pregnancy
CPT/HCPCS: 59409; 36415; 59025; 76815; 80307; 81001; 82800; 82947; 82962; 84112; 85007; 85025; 86593; 86703; 86850; 94761; G0283; G0432; J0595; J0690

== ENCOUNTER 2023-05-06 13:27 | Outpatient (CLI) | payer MEDICARE, OTHER, SELFPAY ==
--- NOTE | 2023-05-06 13:28 | US_ITS ---
PROCEDURE: US TRANSVAGINAL CLINICAL INDICATION: Pelvic/Abdominal Pain Post /Delivery COMPARISON: No exams were available for comparison FINDINGS: Transvaginal and trans abdominal sonographic images of the pelvis were obtained. UTERUS: 10.4cm x 7.7 cmx 5.7 cm anteverted with a combined endometrial thickness of 9.6mm. LEFT OVARY: 3.3cmx2.0cmx2.9cm with a volume of 9.7ml. RIGHT OVARY: 4.4cmx 2.0cmx2.9cm with a volume of 8.3ml. Both ovaries are seen and appear polycystic. Doppler flow to both ovaries are seen. There is no fluid in the cul-de-sac. IMPRESSION: 1. Anteverted bulky uterus. There is still some blood within the endometrial cavity. 2. Both ovaries appear polycystic. 3. No fluid in the cul-de-sac 4. The tech noted that there were gallstones in the gallbladder. Dictated by: Chuy Huang MD 05/06/2023 16:37 Chuy Huang MD in OV 05/06/2023 16:37
== END 2023-05-06 23:59 ==
LOC: RAD 13:28
PROVIDERS: PCP Internal Medicine; Visit Provider Obstetrics & Gynecology
DX: R10.2 Pelvic and perineal pain (principal); R10.9 Unspecified abdominal pain
CPT/HCPCS: 76830

== ENCOUNTER 2023-06-02 08:33 | Outpatient (CLI) | payer MEDICARE, OTHER, SELFPAY ==
--- NOTE | 2023-06-02 08:41 | FL_ITS ---
FINAL REPORT CLINICAL HISTORY: Upper gi pain...chest pain..2 months post 1.39 fluoro time 1109.81 dap FINDINGS: AIR CONTRAST UPPER GI HISTORY: Right upper quadrant abdominal pain. TECHNIQUE: Patient ingested thick and thin barium contrast. Effervescent crystals were also administered. Spot and overhead films were performed. A total of 44 images were saved. FINDINGS: The esophagus demonstrates no morphologic abnormalities. No mucosal defects are seen and motility appears normal. The stomach is of normal size, shape and position. No gastric filling defects are seen. The duodenal bulb and sweep appear unremarkable. No episodes of gastroesophageal reflux observed. 13 mm barium tablet passes easily through the esophagus and into the stomach. Radiation exposure in Total DAP: 1109.81 uGym2 Fluoroscopy time: 1 minute 39 seconds Total images: 44 IMPRESSION: Unremarkable upper GI series. Reviewed, Interpreted and Dictated by Henrry Lewis MD Transcribed by Nina Villegas PA-C Authenticated and [facility]
--- NOTE | 2023-06-02 09:10 | US_ITS ---
FINAL REPORT TECHNIQUE: Sonographic images of the right upper quadrant were obtained. CLINICAL HISTORY: Right upper quad pain COMPARISON: None FINDINGS: PANCREAS: Unremarkable. LIVER: Homogeneous. No focal hepatic lesion. No intrahepatic biliary ductal dilatation. GALLBLADDER: There are multiple small gallstones present in the gallbladder.. No gallbladder wall thickening or pericholecystic fluid. COMMON DUCT: 2.4 mm. Normal for age. RIGHT KIDNEY: The right kidney measures 9.7 cm. There is no hydronephrosis, mass, or stone. FREE FLUID: None. IMPRESSION: Multiple gallstones present in the gallbladder. Reviewed, Interpreted and Dictated by Henrry Lewis MD Transcribed by Savanna Felder Authenticated and [facility]
== END 2023-06-02 23:59 ==
PROVIDERS: PCP Internal Medicine; Visit Provider Surgery
DX: R10.11 Right upper quadrant pain (principal)
CPT/HCPCS: 74246; 76705

== ENCOUNTER 2023-07-16 14:41 | Emergency (ER) | payer MEDICARE, OTHER, SELFPAY ==
[2023-07-16 14:41] VITALS: BP 132/78; PULSE 80; RESP 19; TEMP 36.8; O2SAT 98; BMI 25.8
--- NOTE | 2023-07-16 14:43 | ECG_ITS ---
APPROVED REPORT Exam: Resting ECG HR:55 bpm ECG Measurements Heart Rate 55 AXES IL 136 P 47 QRSd 99 QRS 78 QT 418 T 37 QTc 408 Conclusion SINUS BRADYCARDIA POSSIBLE LEFT ATRIAL ENLARGEMENT [-0.1mV P-WAVE IN V1/V2] LOW QRS VOLTAGE IN PRECORDIAL LEADS [QRS DEFLECTION < 1.0 mV IN CHEST LEADS] Electronically signed by : CEDRIC TURNER, 07/16/2023 23:27:08
--- NOTE | 2023-07-16 14:50 | XR_ITS ---
FINAL REPORT CLINICAL HISTORY: cp goes into left arm and upper back dizzy and fatigued patient 4 months COMPARISON: 07/30/2021 FINDINGS: A single portable view of the chest was obtained. The heart size and pulmonary vascularity are within normal limits. The mediastinum is within normal limits. No acute pulmonary abnormality is identified. The bony thorax is intact. IMPRESSION: No active cardiopulmonary disease. Reviewed, Interpreted and Dictated by Manuelito Kim III, MD Transcribed by Hope Cheatham Authenticated and [facility]
--- NOTE | 2023-07-16 14:56 | ED_ITS ---
<Statement entered by Cassidy Rodriges DO - 07/16/23 22:45> I was consulted by the BALA, and we discussed the complexity of the problems being addressed. I approved the treatment and management plan for this patient's care in the emergency department, thus performing a substantive portion of the medical decision making. Cassidy Rodriges DO Discharge Plan Disposition Patient Disposition: Home, Self-Care Condition: Good Prescriptions Prescriptions: No Action sertraline 100 mg tablet 100 mg PO DAILY Qty: 30 2RF pantoprazole 40 mg tablet,delayed release (DR/EC) PO Patient Comments: TAKE 1 TABLET BY MOUTH ONCE DAILY IN THE MORNING FOR GERD FOR 30 DAYS oxcarbazepine 300 mg tablet 300 mg PO Patient Comments: TAKE 1 TABLET BY MOUTH TWICE DAILY FOR 30 DAYS levothyroxine [Synthroid] 125 mcg tablet 125 mcg PO DAILY Qty: 30 1RF Referrals Follow up/Referrals: Erick Ku MD [Primary Care Provider] - See instructions Activity Restrictions/Add. Instructions Additional Instructions/Restrictions: Follow-up with your PCP as scheduled sooner if any change or worsening in your symptoms or return to the ER as needed. Alternate 1000 g of Tylenol every 4 hours with Motrin as needed for return of symptoms. Clinical Impressions Clinical Impression: Left-sided chest pain Instructions Patient Instructions: DI for Atypical Chest Pain Discharge ED Provider: Cassidy Rodriges HPI <PAUL Salazar - Last Filed: 07/16/23 16:22> General Chief Complaint: Chest Pain Stated Complaint: Chest Pain Time Seen by Provider: 07/16/23 14:44 History of Present Illness HPI narrative: Patient presents with a chief complaint of left-sided chest pain that began yesterday. Patient denies fever or shortness of breath chills hemoptysis hematochezia melena nausea vomiting diarrhea. Patient states the pain has been constant but has waxed and waned in intensity. Patient denies trauma. Patient is 4 months and is not breast-feeding. Related Data Home Medications Medication Instructions Recorded Confirmed pantoprazole 40 mg tablet,delayed mg PO 05/29/23 06/11/23 release oxcarbazepine 300 mg tablet 300 mg PO 06/05/23 06/11/23 Previous Rx's Medication Instructions Recorded levothyroxine 125 mcg tablet 125 mcg PO DAILY #30 tabs 10/14/22 (Synthroid) sertraline 100 mg tablet 100 mg PO DAILY #30 tabs 05/16/23 Allergies Allergy/AdvReac Type Severity Reaction Status Date / Time montelukast [From Singulair] Allergy Mild Rash Verified 06/11/23 16:00 Penicillins Allergy Unknown Unknown Verified 06/11/23 16:00 allergy reaction PFS <PUAL Salazar - Last Filed: 07/16/23 16:22> [facility] Disclaimer: The information contained in this section may have been updated after the patient was seen, as this information can be updated by other users. Medical History (Updated 07/16/23 @ 15:20 by PAUL Salazar) Depression Gestational diabetes mellitus Surgical History Status post vaginal delivery History of tonsillectomy Family History Other Anemia Asthma Cancer Diabetes Heart attack Hyperlipidemia Hypertension Thyroid disorder Social History Smoking Status: Never smoker alcohol intake: never substance use type: denies use current occupational status: unemployed Travel in the last 8 weeks: None <PAUL Salazar - Last Filed: 07/16/23 16:22> ROS Obtained: Yes Systems reviewed as appropriate & no additional complaints except as documented Physical Exam <PAUL Salazar - Last Filed: 07/16/23 16:22> General General appearance: alert and in no apparent distress Head Head exam: atraumatic and normal inspection Eye Eye exam: Present normal appearance, PERRL and EOMI ENT ENT exam: Present normal exam, normal oropharynx and mucous membranes moist Neck Neck exam: Present normal inspection and full ROM Chest Chest inspection: Present normal inspection and symmetric chest wall rise; Absent tenderness, rash or abscess Respiratory Respiratory exam: Present normal lung sounds bilaterally; Absent respiratory distress, wheezes, stridor or accessory muscle use Cardiovascular Cardiovascular exam: Present regular rate, normal rhythm, normal heart sounds, +S1 and +S2 Abdominal Exam Abdominal exam: Present soft and normal bowel sounds; Absent tenderness Extremities Exam Extremities exam: Present normal inspection and full ROM Back Exam Back exam: Present normal inspection and full ROM; Absent tenderness Neurological Exam Neurological exam: Present alert, oriented X3 and CN II-XII intact Psychiatric Psychiatric exam: Present normal affect and normal mood Skin Skin exam: Present warm, dry and normal color HEART Score <PAUL Salazar - Last Filed: 07/16/23 16:22> HEART Score HEART Score assessment performed?: Yes History (anamnesis): Slightly suspicious ECG: Normal Age: <45 years Risk factors: No known risk factors Troponin: </= normal limit HEART Score: 0 <Cassidy Rodriges DO - Last Filed: 07/16/23 22:46> HEART Score HEART Score: 0 <Manohar Ortiz MD - Last Filed: 07/17/23 16:13> HEART Score HEART Score: 0 Critical Care <PAUL Salazar - Last Filed: 07/16/23 16:22> Critical Care Time Critical Care Time: No Medical Decision Making <PAUL Salazar - Last Filed: 07/16/23 16:22> Medical Records Medical records reviewed: Yes I reviewed the patient's medical records. Franck Inquiry Pt receiving controlled substance: No Vital Signs Vital Signs: 07/16/23 14:41 07/16/23 15:00 07/16/23 15:30 Temperature 98.3 F Temperature Source Oral Pulse Rate 64 56 L Pulse Rate [Right] 80 Respiratory Rate 19 13 13 Blood Pressure 114/68 109/70 L Blood Pressure [Right Arm] 132/78 Blood Pressure Mean [Right Arm] 96 Blood Pressure Source [Right Arm] Automatic Cuff 02 Sat by Pulse Oximetry 98 100 98 Oxygen Delivery Method Room Air 07/16/23 16:00 07/16/23 16:23 07/16/23 16:33 Temperature 98.2 F Temperature Source Pulse Rate 60 88 60 Pulse Rate [Right] Respiratory Rate 15 18 Blood Pressure 105/76 L 136/76 Blood Pressure [Right Arm] Blood Pressure Mean [Right Arm] Blood Pressure Source [Right Arm] 02 Sat by Pulse Oximetry 97 Oxygen Delivery Method Room Air Lab Data Lab results reviewed: Yes I reviewed the patient's lab results. Labs: Lab Results 07/16/23 14:13: SARS-CoV-2 (PCR) Not detected, Influenza A Untype (PCR) Not detected, Influenza Type B (PCR) Not detected 07/16/23 14:55: WBC 11.0 H, RBC 5.01, Hgb 15.3, Hct 46.4, MCV 92.7, MCH 30.5, MCHC 32.9, RDW 13.8, Plt Count 327, MPV 7.8, Neut % (Auto) 57.1, Lymph % (Auto) 29.9, Cascade % (Auto) 5.3, Eos % (Auto) 5.8, Baso % (Auto) 1.9, Neut # (Auto) 6.3, Lymph # (Auto) 3.3, Cascade # (Auto) 0.6, Eos # (Auto) 0.6 H, Baso # (Auto) 0.2, Sodium 138, Potassium 4.5, Chloride 103, Carbon Dioxide 27, Anion Gap 12.5, BUN 25 H, Creatinine 1.00, Estimated GFR 62, Est GFR ( Amer) 75, Glucose 93, Calcium 10.2, Magnesium 2.0, Total Bilirubin 0.6, AST 38 H, ALT 36, Alkaline Phosphatase 76, Troponin I < 0.01, NT-Pro-B Natriuret Pep < 20.0, Total Protein 8.3 H, Albumin 5.0, Globulin 3.3 H, Albumin/Globulin Ratio 1.5, Lipase 166, HCG, Quant < 2 07/16/23 14:55 07/16/23 14:55 Response Orders (Tests/Meds): ED MEDICATIONS Discontinued Medications Generic Name Dose Route Start Last Admin Trade Name Freq PRN Reason Stop Dose Admin Acetaminophen 1,000 mg 07/16/23 14:58 07/16/23 15:14 Acetaminophen 500mg Tab PO 07/16/23 14:59 1,000 mg ONCE ONE Administration Aspirin 324 mg 07/16/23 14:50 07/16/23 14:57 Aspirin 81mg Chewable Tablet PO 07/16/23 14:51 324 mg ONCE ONE Administration Ketorolac Tromethamine 15 mg 07/16/23 14:58 07/16/23 15:14 Ketorolac 30mg/Ml Vial IV 07/16/23 14:59 15 mg ONCE ONE Administration ORDERS Category Date Time Status CXR --portable [XR chest portable] Stat Exams 07/16/23 14:50 Completed BNP [NT Pro Brain Natriuretic Pep.] Stat Lab 07/16/23 14:55 Completed CBC w/Auto Diff [Complete Blood Count Auto Diff] Stat Lab 07/16/23 14:55 Completed CMP [Comprehensive Metabolic Panel] Stat Lab 07/16/23 14:55 Completed HCG,Quantitative Stat Lab 07/16/23 14:55 Completed Lipase Stat Lab 07/16/23 14:55 Completed Magnesium Stat Lab 07/16/23 14:55 Completed Rapid PCR Covid and Flu A/B Stat Lab 07/16/23 14:13 Completed Trop I [Troponin I] Stat Lab 07/16/23 14:55 Completed MDM Narrative Medical Decision Narrative: In summary patient is a 38-year-old female who presents to the emergency department for evaluation of left chest pain. Patient is hemodynamically stable upon arrival, febrile. Physical exam is remarkable for subjective left-sided chest pain that is nonreproducible on physical exam. No deformities erythema fluctuance induration noted on exam. Differential diagnosis includes musculoskeletal strain versus PE versus ACS etc. Initial workup will be conducted with twelve-lead EKG plain film chest x-ray hematologic labs. Initial interventions include Toradol and Tylenol. Initial workup reviewed by me is that her hematologic labs are nonactionable including an undetectable troponin and negative respiratory swabs.. Upon repeat evaluation patient is reported subjective improvement in her left-sided chest discomfort and dizziness.. Given this appropriate for discharge with close follow-up with her PCP. Patient verbalized understanding and agreement. <Cassidy Rodriges, DO - Last Filed: 07/16/23 22:46> Vital Signs Vital Signs: 07/16/23 14:41 07/16/23 15:00 07/16/23 15:30 Temperature 98.3 F Temperature Source Oral Pulse Rate 64 56 L Pulse Rate [Right] 80 Respiratory Rate 19 13 13 Blood Pressure 114/68 109/70 L Blood Pressure [Right Arm] 132/78 Blood Pressure Mean [Right Arm] 96 Blood Pressure Source [Right Arm] Automatic Cuff 02 Sat by Pulse Oximetry 98 100 98 Oxygen Delivery Method Room Air 07/16/23 16:00 07/16/23 16:23 07/16/23 16:33 Temperature 98.2 F Temperature Source Pulse Rate 60 88 60 Pulse Rate [Right] Respiratory Rate 15 18 Blood Pressure 105/76 L 136/76 Blood Pressure [Right Arm] Blood Pressure Mean [Right Arm] Blood Pressure Source [Right Arm] 02 Sat by Pulse Oximetry 97 Oxygen Delivery Method Room Air Lab Data Labs: Lab Results 07/16/23 14:13: SARS-CoV-2 (PCR) Not detected, Influenza A Untype (PCR) Not detected, Influenza Type B (PCR) Not detected 07/16/23 14:55: WBC 11.0 H, RBC 5.01, Hgb 15.3, Hct 46.4, MCV 92.7, MCH 30.5, MCHC 32.9, RDW 13.8, Plt Count 327, MPV 7.8, Neut % (Auto) 57.1, Lymph % (Auto) 29.9, Cascade % (Auto) 5.3, Eos % (Auto) 5.8, Baso % (Auto) 1.9, Neut # (Auto) 6.3, Lymph # (Auto) 3.3, Cascade # (Auto) 0.6, Eos # (Auto) 0.6 H, Baso # (Auto) 0.2, Sodium 138, Potassium 4.5, Chloride 103, Carbon Dioxide 27, Anion Gap 12.5, BUN 25 H, Creatinine 1.00, Estimated GFR 62, Est GFR ( Amer) 75, Glucose 93, Calcium 10.2, Magnesium 2.0, Total Bilirubin 0.6, AST 38 H, ALT 36, Alkaline Phosphatase 76, Troponin I < 0.01, NT-Pro-B Natriuret Pep < 20.0, Total Protein 8.3 H, Albumin 5.0, Globulin 3.3 H, Albumin/Globulin Ratio 1.5, Lipase 166, HCG, Quant < 2 Response Orders (Tests/Meds): ED MEDICATIONS Discontinued Medications Generic Name Dose Route Start Last Admin Trade Name Freq PRN Reason Stop Dose Admin Acetaminophen 1,000 mg 07/16/23 14:58 07/16/23 15:14 Acetaminophen 500mg Tab PO 07/16/23 14:59 1,000 mg ONCE ONE Administration Aspirin 324 mg 07/16/23 14:50 07/16/23 14:57 Aspirin 81mg Chewable Tablet PO 07/16/23 14:51 324 mg ONCE ONE Administration Ketorolac Tromethamine 15 mg 07/16/23 14:58 07/16/23 15:14 Ketorolac 30mg/Ml Vial IV 07/16/23 14:59 15 mg ONCE ONE Administration ORDERS Category Date Time Status CXR --portable [XR chest portable] Stat Exams 07/16/23 14:50 Completed BNP [NT Pro Brain Natriuretic Pep.] Stat Lab 07/16/23 14:55 Completed CBC w/Auto Diff [Complete Blood Count Auto Diff] Stat Lab 07/16/23 14:55 Completed CMP [Comprehensive Metabolic Panel] Stat Lab 07/16/23 14:55 Completed HCG,Quantitative Stat Lab 07/16/23 14:55 Completed Lipase Stat Lab 07/16/23 14:55 Completed Magnesium Stat Lab 07/16/23 14:55 Completed Rapid PCR Covid and Flu A/B Stat Lab 07/16/23 14:13 Completed Trop I [Troponin I] Stat Lab 07/16/23 14:55 Completed ECG Data Tracing #1: Attestation: I reviewed this ECG and interpreted as documented below: ECG Narrative: Sinus bradycardia with a ventricular rate of [address] changes concerning for ischemia. Normal axis and intervals. ECG initial impression date: 07/16/23 ECG initial impression time: 14:45 <Manohar Ortiz MD - Last Filed: 07/17/23 16:13> Vital Signs Vital Signs: 07/16/23 14:41 07/16/23 15:00 07/16/23 15:30 Temperature 98.3 F Temperature Source Oral Pulse Rate 64 56 L Pulse Rate [Right] 80 Respiratory Rate 19 13 13 Blood Pressure 114/68 109/70 L Blood Pressure [Right Arm] 132/78 Blood Pressure Mean [Right Arm] 96 Blood Pressure Source [Right Arm] Automatic Cuff 02 Sat by Pulse Oximetry 98 100 98 Oxygen Delivery Method Room Air 07/16/23 16:00 07/16/23 16:23 07/16/23 16:33 Temperature 98.2 F Temperature Source Pulse Rate 60 88 60 Pulse Rate [Right] Respiratory Rate 15 18 Blood Pressure 105/76 L 136/76 Blood Pressure [Right Arm] Blood Pressure Mean [Right Arm] Blood Pressure Source [Right Arm] 02 Sat by Pulse Oximetry 97 Oxygen Delivery Method Room Air Lab Data Labs: Lab Results 07/16/23 14:13: SARS-CoV-2 (PCR) Not detected, Influenza A Untype (PCR) Not detected, Influenza Type B (PCR) Not detected 07/16/23 14:55: WBC 11.0 H, RBC 5.01, Hgb 15.3, Hct 46.4, MCV 92.7, MCH 30.5, MCHC 32.9, RDW 13.8, Plt Count 327, MPV 7.8, Neut % (Auto) 57.1, Lymph % (Auto) 29.9, Cascade % (Auto) 5.3, Eos % (Auto) 5.8, Baso % (Auto) 1.9, Neut # (Auto) 6.3, Lymph # (Auto) 3.3, Cascade # (Auto) 0.6, Eos # (Auto) 0.6 H, Baso # (Auto) 0.2, Sodium 138, Potassium 4.5, Chloride 103, Carbon Dioxide 27, Anion Gap 12.5, BUN 25 H, Creatinine 1.00, Estimated GFR 62, Est GFR ( Amer) 75, Glucose 93, Calcium 10.2, Magnesium 2.0, Total Bilirubin 0.6, AST 38 H, ALT 36, Alkaline Phosphatase 76, Troponin I < 0.01, NT-Pro-B Natriuret Pep < 20.0, Total Protein 8.3 H, Albumin 5.0, Globulin 3.3 H, Albumin/Globulin Ratio 1.5, Lipase 166, HCG, Quant < 2 Response Orders (Tests/Meds): ED MEDICATIONS Discontinued Medications Generic Name Dose Route Start Last Admin Trade Name Freq PRN Reason Stop Dose Admin Acetaminophen 1,000 mg 07/16/23 14:58 07/16/23 15:14 Acetaminophen 500mg Tab PO 07/16/23 14:59 1,000 mg ONCE ONE Administration Aspirin 324 mg 07/16/23 14:50 07/16/23 14:57 Aspirin 81mg Chewable Tablet PO 07/16/23 14:51 324 mg ONCE ONE Administration Ketorolac Tromethamine 15 mg 07/16/23 14:58 07/16/23 15:14 Ketorolac 30mg/Ml Vial IV 07/16/23 14:59 15 mg ONCE ONE Administration ORDERS Category Date Time Status CXR --portable [XR chest portable] Stat Exams 07/16/23 14:50 Completed BNP [NT Pro Brain Natriuretic Pep.] Stat Lab 07/16/23 14:55 Completed CBC w/Auto Diff [Complete Blood Count Auto Diff] Stat Lab 07/16/23 14:55 Completed CMP [Comprehensive Metabolic Panel] Stat Lab 07/16/23 14:55 Completed HCG,Quantitative Stat Lab 07/16/23 14:55 Completed Lipase Stat Lab 07/16/23 14:55 Completed Magnesium Stat Lab 07/16/23 14:55 Completed Rapid PCR Covid and Flu A/B Stat Lab 07/16/23 14:13 Completed Trop I [Troponin I] Stat Lab 07/16/23 14:55 Completed MDM Narrative Medical Decision Narrative: In summary patient is a 38-year-old female who presents to the emergency department for evaluation of left chest pain. Patient is hemodynamically stable upon arrival, febrile. Physical exam is remarkable for subjective left-sided chest pain that is nonreproducible on physical exam. No deformities erythema fluctuance induration noted on exam. Differential diagnosis includes musculoskeletal strain versus PE versus ACS etc. Initial workup will be conducted with twelve-lead EKG plain film chest x-ray hematologic labs. Initial interventions include Toradol and Tylenol. Initial workup reviewed by me is that her hematologic labs are nonactionable including an undetectable troponin and negative respiratory swabs.. Upon repeat evaluation patient is reported subjective improvement in her left-sided chest discomfort and dizziness.. Given this appropriate for discharge with close follow-up with her PCP. Patient verbalized understanding and agreement. I was consulted by the BALA, and we discussed the complexity of the problems being addressed. I approved the treatment and management plan for this patient?s care in the Emergency Department, thus performing a substantive portion of the medical decision making. Manohar Ortiz MD
[2023-07-16] MEDS: ASPIRIN 81MG CHEWABLE TABLET 324 MG PO (14:57)
[2023-07-16 15:00] VITALS: BP 114/68; PULSE 64; RESP 13; O2SAT 100
[2023-07-16 15:10] LABS: Basophils # 0.2 K/mm3 (0-0.2); Basophils % 1.9 % (0.1-2.0); Eosinophils # 0.6 K/mm3 (0.0-0.4); Eosinophils % 5.8 % (0.1-12.0); Hematocrit 46.4 % (37.0-47.0); Hemoglobin 15.3 g/dL (12.2-16.2); Lymphocytes # 3.3 K/mm3 (0.7-4.5); Lymphocytes % 29.9 % (10-50); Mean Corpuscular HGB Conc 32.9 g/dL (31.8-35.4); Mean Corpuscular Hemoglobin 30.5 pg (27.0-31.2); Mean Corpuscular Volume 92.7 fl (81-99); Mean Platelet Volume 7.8 fl (7.4-10.4); Monocytes # 0.6 K/mm3 (0.1-1.0); Monocytes % 5.3 % (1.7-9.3); Neutrophils # 6.3 K/mm3 (1.8-7.8); Neutrophils % 57.1 % (37.0-80.0); Platelet Count 327 K/mm3 (142-424); Red Blood Count 5.01 M/mm3 (4.20-5.40); Red Cell Distribution Width 13.8 % (11.5-17.5)
[2023-07-16] MEDS: ACETAMINOPHEN 500MG TAB 1000 MG PO (15:14)
[2023-07-16] MEDS: KETOROLAC 30MG/ML VIAL 15 MG IV (15:14)
[2023-07-16 15:18] LABS: Alanine Aminotransferase 36 U/L (12-78); Albumin/Globulin Ratio 1.5 (1.1-1.8); Alkaline Phosphatase 76 U/L (38-126); Anion Gap 12.5 mEq/L (5-15); Aspartate Amino Transferase 38 U/L (14-36); Bilirubin,Total 0.6 mg/dl (0.2-1.3); Blood Urea Nitrogen 25 mg/dl (7-17); Calcium 10.2 mg/dl (8.4-10.2); Carbon Dioxide 27 mmol/L (22.0-30.0); Chloride 103 mmol/L (98-107); Estimated Glomerular Filt Rate 62 ml/min (>60); GFR (African American) 75 ML/MIN (>60); Globulin 3.3 g/dL (1.3-3.2); Glucose 93 mg/dl (74-100); Lipase 166 U/L (23-300); Potassium 4.5 mmoL/L (3.5-5.1); Sodium 138 mmol/L (136-145); Total Protein,Serum 8.3 g/dl (6.3-8.2)
[2023-07-16 15:18] LABS: Coronavirus 19, PCR Not Detected (NotDetected); Influenza A, PCR Not Detected (NotDetected); Influenza B, PCR Not Detected (NotDetected)
[2023-07-16 15:28] LABS: NT Pro Brain Natriuretic Pep. < 20.0 pg/mL (0-125)
[2023-07-16 15:30] VITALS: BP 109/70; PULSE 56; RESP 13; O2SAT 98
[2023-07-16 15:49] LABS: HCG,Quantitative < 2 mIU/ml (0-5.42); Troponin I < 0.01 ng/ml (0.00-0.034)
[2023-07-16 16:00] VITALS: BP 105/76; PULSE 60; RESP 15; O2SAT 97
--- NOTE | 2023-07-16 16:20 | PC.NURSE ---
rounded on pt, seizure pads still in place with family at bedside. no other questions nor concerns at this time.
[2023-07-16 16:23] VITALS: PULSE 88
[2023-07-16 16:33] VITALS: BP 136/76; PULSE 60; RESP 18; TEMP 36.8; O2SAT 98
== END 2023-07-16 16:35 | disposition home or self-care (01) ==
PROVIDERS: Emergency Medicine; Physician Assistant; Emergency Provider Emergency Medicine; PCP Internal Medicine
DX: R00.1 Bradycardia, unspecified (principal); R07.89 Other chest pain
CPT/HCPCS: 71045; 80053; 83690; 83735; 83880; 84484; 84702; 85025; 87636; 93005; 96374; 99284

== ENCOUNTER 2023-12-18 11:30 | Outpatient (CLI) | payer MEDICARE, OTHER, SELFPAY ==
[2023-12-18 13:09] LABS: Thyroid Stimulating Hormone 3.31 uIU/mL (0.465-4.68)
[2023-12-18 13:20] LABS: HCG,Quantitative 50579 mIU/ml (0-5.42)
[2023-12-19 11:13] LABS: Progesterone 9.5 ng/mL (.)
== END 2023-12-18 23:59 | disposition home or self-care (01) ==
LOC: LAB 11:31
PROVIDERS: PCP Internal Medicine; Visit Provider Obstetrics & Gynecology
DX: Z34.90 Encounter for supervision of normal pregnancy, unspecified, unspecified trimester (principal); E07.9 Disorder of thyroid, unspecified
CPT/HCPCS: 36415; 84144; 84443; 84702

== ENCOUNTER 2023-12-30 15:21 | Outpatient (CLI) | payer MEDICARE, OTHER, SELFPAY ==
--- NOTE | 2023-12-30 15:23 | US_ITS ---
PROCEDURE: US OB <= 14 WEEKS FETUS CLINICAL INDICATION: confirm dates and viability COMPARISON: No exams were available for comparison FINDINGS: Transvaginal sonographic images of the pelvis were obtained. Her last menstrual period is unknown. An intrauterine gestational sac is present with a pole with a crown-rump length of 0.42cm This correlates to a gestational age of 6weeks 1day. heart tones are not seen today. Yolk sac is noted. The yolk sac measures 3.9mm. There is an area inferior to the amnion that appears to be a small subchorionic hemorrhage. The right ovary is seen and appears normal. The left ovary is seen and appears normal. There is a 1.3 cm corpus luteum in the left ovary. There is no fluid in the cul-de-sac. IMPRESSION: 1. There is a fetus within the uterine cavity that does not appear to have heart rate activity. 2. Fetus measures 6 weeks and 1 day. 3. Amnion and yolk sac are seen. There is a small, inferior area of subchorionic hemorrhage. 4. Both ovaries are seen and appear normal. A corpus luteum is present on the left ovary. 5. No fluid in the cul-de-sac. 6. The preformer impregnated fabrics informed Dr. Alexander of the results. Dictated by: Chuy Huang MD 12/31/2023 07:04 Chuy Huang MD in [facility] 12/31/2023 07:04
== END 2023-12-30 23:59 | disposition home or self-care (01) ==
LOC: RAD 15:23
PROVIDERS: PCP Internal Medicine; Visit Provider Obstetrics & Gynecology
DX: R39.9 Unspecified symptoms and signs involving the genitourinary system (principal); Z34.81 Encounter for supervision of other normal pregnancy, first trimester
CPT/HCPCS: 76801; 87086; 87088; 87186

== ENCOUNTER 2024-01-06 14:02 | Outpatient (CLI) | payer MEDICARE, OTHER, SELFPAY ==
--- NOTE | 2024-01-06 14:07 | US_ITS ---
PROCEDURE: US OB <= 14 WEEKS FETUS CLINICAL INDICATION: Recheck Viability COMPARISON: US US OB <= 14 WEEKS FETUS from 12/30/2023 FINDINGS: Transvaginal sonographic images of the pelvis were obtained. Her last menstrual period is and An intrauterine gestational sac is present with a pole with a crown-rump length of 0.48cm This correlates to a gestational age of 6weeks 2days. heart tones are absent today. Yolk sac has collapsed. There is a small subchorionic hemorrhage superiorly. The right ovary is seen and appears normal. There are multiple small peripheral follicles. The left ovary is seen and appears normal. There are multiple small peripheral follicles. There is no fluid in the cul-de-sac. IMPRESSION: 1. Nonviable fetus within the uterine cavity. The fetus measures 6 weeks 2 days. There is no heart rate activity. 2. There has been no growth of the fetus in a week. The yolk sac has collapsed. 3. There is a small subchorionic hemorrhage. 4. Both ovaries are seen and appear polycystic. 5. No fluid in the cul-de-sac. Dictated by: Chuy Huang MD 01/06/2024 16:52 Chuy Huang MD in [facility] 01/06/2024 16:52
[2024-01-06 18:20] LABS: HCG,Quantitative 15246 mIU/ml (0-5.42)
== END 2024-01-06 23:59 | disposition home or self-care (01) ==
PROVIDERS: PCP Internal Medicine; Visit Provider Obstetrics & Gynecology
DX: O36.80X0 Pregnancy with inconclusive fetal viability, not applicable or unspecified (principal); O02.1 Missed abortion
CPT/HCPCS: 36415; 76801; 84702

== ENCOUNTER 2024-01-15 15:20 | Outpatient (CLI) | payer MEDICARE, OTHER, SELFPAY ==
--- NOTE | 2024-01-15 15:25 | US_ITS ---
PROCEDURE: US OB <= 14 WEEKS FETUS CLINICAL INDICATION: Continued Management-possible miscarriage COMPARISON: US US OB <= 14 WEEKS FETUS from 12/30/2023 US US OB <= 14 WEEKS FETUS from 01/06/2024 FINDINGS: Transvaginal sonographic images of the pelvis were obtained. Her last menstrual period is unknown. An intrauterine gestational sac is present with a pole with a crown-rump length of 0.33cm This correlates to a gestational age of 6weeks 0 days. heart tones are absent. Yolk sac is noted. The yolk sac appears collapsed. The right ovary is seen and appears normal. There are multiple small peripheral follicles. The left ovary is seen and appears normal. There are multiple small peripheral follicles. A corpus luteum measuring 1.1 cm is present in the left ovary. There is no fluid in the cul-de-sac. IMPRESSION: 1. Intrauterine gestational sac is seen. No heart rate activity is present today. 2. An embryo is seen measuring 6 weeks 0 days and the yolk sac has collapsed. 3. There is a small subchorionic hemorrhage. 4. Both ovaries appear polycystic. 5. There is a corpus luteum in the left ovary. 6. No fluid in the cul-de-sac. Dictated by: Chuy Huang MD 01/15/2024 16:34 Chuy Huang MD in [facility] 01/15/2024 16:34
[2024-01-15 17:14] LABS: HCG,Quantitative 6141 mIU/ml (0-5.42)
== END 2024-01-15 23:59 | disposition home or self-care (01) ==
LOC: RAD 15:21
PROVIDERS: PCP Internal Medicine; Visit Provider Obstetrics & Gynecology
DX: O02.1 Missed abortion (principal); O36.80X0 Pregnancy with inconclusive fetal viability, not applicable or unspecified; Z3A.01 Less than 8 weeks gestation of pregnancy
CPT/HCPCS: 36415; 76801; 84702

== ENCOUNTER 2024-01-22 12:32 | Outpatient (CLI) | payer MEDICARE, OTHER, SELFPAY ==
[2024-01-22 14:37] LABS: HCG,Quantitative 2893 mIU/ml (0-5.42)
== END 2024-01-22 23:59 | disposition home or self-care (01) ==
LOC: LAB 12:33
PROVIDERS: PCP Internal Medicine; Visit Provider Obstetrics & Gynecology
DX: O02.1 Missed abortion (principal)
CPT/HCPCS: 36415; 84702

== ENCOUNTER 2024-01-23 23:16 | Day surgery (SDC) | payer MEDICARE, OTHER, SELFPAY ==
[2024-01-23 23:17] VITALS: BP 135/88; PULSE 88; RESP 16; TEMP 36.6; O2SAT 99; BMI 24.7
[2024-01-23 23:50] LABS: Basophils # 0.1 K/mm3 (0-0.2); Basophils % 1.3 % (0.1-2.0); Eosinophils # 0.6 K/mm3 (0.0-0.4); Eosinophils % 5.4 % (0.1-12.0); Hematocrit 38.3 % (37.0-47.0); Hemoglobin 12.9 g/dL (12.2-16.2); Lymphocytes # 3.6 K/mm3 (0.7-4.5); Lymphocytes % 32.6 % (10-50); Mean Corpuscular HGB Conc 33.6 g/dL (31.8-35.4); Mean Corpuscular Hemoglobin 29.5 pg (27.0-31.2); Mean Corpuscular Volume 87.8 fl (81-99); Mean Platelet Volume 7.5 fl (7.4-10.4); Monocytes # 0.5 K/mm3 (0.1-1.0); Monocytes % 4.9 % (1.7-9.3); Neutrophils # 6.2 K/mm3 (1.8-7.8); Neutrophils % 55.9 % (37.0-80.0); Platelet Count 312 K/mm3 (142-424); Red Blood Count 4.37 M/mm3 (4.20-5.40); Red Cell Distribution Width 13.4 % (11.5-17.5); White Blood Count 11.1 K/mm3 (4.8-10.8)
[2024-01-24] VITALS (10 sets, daily range): BP systolic 99–127; BP diastolic 65–94; PULSE 83–140; RESP 16–18; TEMP 36.6–36.8; O2SAT 97–100
[2024-01-24 00:03] LABS: Alanine Aminotransferase 18 U/L (12-78); Albumin Level 4.3 g/dl (3.5-5.0); Albumin/Globulin Ratio 1.6 (1.1-1.8); Alkaline Phosphatase 51 U/L (38-126); Anion Gap 3.9 mEq/L (5-15); Aspartate Amino Transferase 23 U/L (14-36); Bilirubin,Total 0.5 mg/dl (0.2-1.3); Blood Urea Nitrogen 17 mg/dl (7-17); Calcium 9.3 mg/dl (8.4-10.2); Carbon Dioxide 24 mmol/L (22.0-30.0); Chloride 108 mmol/L (98-107); Creatinine Clearance Estimated 81 mL/min (50-200); Estimated Glomerular Filt Rate 62 ml/min (>60); GFR (African American) 75 ML/MIN (>60); Globulin 2.7 g/dL (1.3-3.2); Glucose 109 mg/dl (74-100); Potassium 3.9 mmoL/L (3.5-5.1); Sodium 132 mmol/L (136-145)
--- NOTE | 2024-01-24 00:03 | ED_ITS ---
Discharge Plan Disposition Patient Disposition: Admitted Chief Complaint: Vaginal Bleeding Prescriptions Prescriptions: No Action famotidine 40 mg tablet 40 mg PO BID Qty: 60 3RF lamotrigine 25 mg tablet 25 mg PO BID Qty: 75 0RF folic acid 1 mg tablet 1 mg PO DAILY Qty: 100 3RF oxcarbazepine 150 mg tablet 150 mg PO DAILY Qty: 30 0RF levothyroxine [Synthroid] 125 mcg tablet 125 mcg PO DAILY Qty: 30 1RF progesterone micronized [Prometrium] 200 mg capsule 200 mg vaginal HS Qty: 30 2RF Rx Instructions: insert vaginally every night at bedtime nitrofurantoin monohyd/m-cryst [Macrobid] 100 mg capsule 100 mg PO BID 7 Days Qty: 14 0RF Rx Instructions: must administer with a meal/food ondansetron 4 mg tablet,disintegrating 4 mg PO Q6H Qty: 30 0RF Referrals Follow up/Referrals: Erick Ku MD [Primary Care Provider] - See instructions Clinical Impressions Clinical Impression: Vaginal bleeding Print Language Print Language: Belarusian Discharge ED Provider: Leif Shahid General Adult HPI General Chief complaint: Vaginal Bleeding Stated complaint: excessive vaginal bleeding Time Seen by Provider: 01/23/24 23:19 Mode of Arrival: Ambulatory Source of Information: Patient Limitations: No Limitations Description of Symptoms (Recalled from ER Triage Doc. by RN): Patient reports bleeding post miscarriage. States she has went through 1/2 pack of maxipads in last couple of hours. States the heavy bleeding began 2 hrs ago. History of Present Illness HPI narrative: 38-year-old female presents to the ER for significant heavy bleeding post miscarriage. Review of records demonstrates back in mid-December already patient had a 6-week fetus without cardiac activity. She has had frequent reassessment with OB since that time, most recent ultrasound in early January still demonstrated contents in the uterus. Patient states she has soaked through 4 large size maxi pads in less than 2 hours. She is passing large clots. She is also feeling lightheaded. In the ER patient stood up out of the stretcher to change clothes and felt presyncopal, she did not syncopize. Patient reports mild lower abdominal cramping sensation earlier today. She states she did take acetaminophen. She has not taken other medications besides her normal prescription medications for epilepsy, thyroid dysfunction. Patient denies any other associated symptoms, including no chest pain, shortness of breath, headache, nausea, vomiting, diarrhea, fever, chills, cough. She denies dysuria. Related Data Previous Rx's ?Medication ?Instructions ?Recorded levothyroxine 125 mcg tablet 125 mcg PO DAILY #30 tabs 10/14/22 (Synthroid) famotidine 40 mg tablet 40 mg PO BID #60 tabs 11/24/23 lamotrigine 25 mg tablet 25 mg PO BID 0 days #75 tabs 12/17/23 progesterone micronized 200 mg 200 mg vaginal HS #30 caps 12/19/23 capsule (Prometrium) folic acid 1 mg tablet 1 mg PO DAILY #100 tabs 12/30/23 oxcarbazepine 150 mg tablet 150 mg PO DAILY #30 tabs 12/30/23 nitrofurantoin 100 mg PO BID 7 days #14 caps 01/05/24 monohydrate/macrocrystals 100 mg capsule (Macrobid) ondansetron 4 mg disintegrating 4 mg PO Q6H #30 tabs 01/20/24 tablet Allergies Allergy/AdvReac Type Severity Reaction Status Date / Time montelukast [From Singulair] Allergy Mild Rash Verified 01/20/24 11:04 Penicillins Allergy Unknown Unknown Verified 01/20/24 11:04 allergy reaction [facility] Disclaimer: The information contained in this section may have been updated after the patient was seen, as this information can be updated by other users. Medical History (Updated 01/24/24 @ 00:22 by Leif Shahid MD) Spontaneous in first trimester Depression Gestational diabetes mellitus Surgical History Status post vaginal delivery History of tonsillectomy Family History Other Anemia Asthma Cancer Diabetes Heart attack Hyperlipidemia Hypertension Thyroid disorder Social History Smoking Status: Never smoker alcohol intake: never substance use type: denies use current occupational status: unemployed Travel in the last 8 weeks: None Other Medical History Have you received the Flu Vaccine for this season: No Have you received the Pneumonia Vaccine: No ROS Obtained: Yes All systems reviewed & no additional complaints except as documented Positive ROS per HPI Physical Exam General General appearance: alert and in no apparent distress Head Head exam: atraumatic and normocephalic Eye Eye exam: Present PERRL and EOMI ENT ENT exam: Present mucous membranes moist Neck Neck exam: Present normal inspection and full ROM Chest Chest inspection: Present symmetric chest wall rise Respiratory Respiratory exam: Present normal lung sounds bilaterally; Absent respiratory distress, wheezes or stridor Cardiovascular Cardiovascular exam: Present regular rate and normal rhythm Abdominal Exam Abdominal exam: Present soft and tenderness (Mild diffuse lower abdominal discomfort with palpation); Absent distention, guarding, rebound or rigidity External exam: Present other (Large clot between the labia and at the introitus); Absent tenderness or swelling Speculum exam: Present other (Speculum exam elicits discomfort, unable to visualize the cervix secondary to significant flow of bright red blood. Exam limited due to bleeding) Extremities Exam Extremities exam: Present full ROM and other (Less than 2-second capillary refill) Neurological Exam Neurological exam: Present alert and oriented X3; Absent motor sensory deficit Psychiatric Psychiatric exam: Present normal affect and normal mood Skin Skin exam: Present warm, dry and pallor Medical Decision Making Medical Records Medical records reviewed: Yes I reviewed the patient's medical records. Screening: Per USPSTF and CDC recommendations, given the prevalence of disease in our region, it is our hospital?s policy to screen for HIV and viral Hepatitis for all patients aged 18 and over and those with ongoing risk factors. MR Comment: See HPI for details Franck Inquiry Pt receiving controlled substance: No Vital Signs: 01/23/24 23:17 Temperature 97.9 F Temperature Source Oral Pulse Rate [Right Radial] 88 Respiratory Rate 16 Blood Pressure [Right Arm] 135/88 Blood Pressure Mean [Right Arm] 103 Blood Pressure Source [Right Arm] Automatic Cuff Blood Pressure Position [Right Arm] Sitting 02 Sat by Pulse Oximetry 99 Oxygen Delivery Method Room Air Lab Data Lab Results 01/23/24 23:35: WBC 11.1 H, RBC 4.37, Hgb 12.9, Hct 38.3, MCV 87.8, MCH 29.5, MCHC 33.6, RDW 13.4, Plt Count 312, MPV 7.5, Neut % (Auto) 55.9, Lymph % (Auto) 32.6, [place] % (Auto) 4.9, Eos % (Auto) 5.4, Baso % (Auto) 1.3, Neut # (Auto) 6.2, Lymph # (Auto) 3.6, [place] # (Auto) 0.5, Eos # (Auto) 0.6 H, Baso # (Auto) 0.1 01/23/24 23:35 Orders (Tests/Meds): ORDERS Category Date Time Status Type and Screen Stat BBK 01/23/24 23:35 Received POCUS Point of Care (ER Only) Stat Exams 01/23/24 23:23 Ordered CBC w/Auto Diff [Complete Blood Count Auto Diff] Stat Lab 01/23/24:35 Completed CMP [Comprehensive Metabolic Panel] Stat Lab 01/23/24:35 Received HCG,Quantitative Stat Lab 01/23/24:35 Received HIV (1&2) Antibody Rapid Stat Lab 01/23/24:35 Received Hep C Ab with Reflex to RNA Stat Lab 01/23/24:35 Received Urinalysis and Microscopic Stat Lab 01/23/24 23:20 Ordered Medical Decision Narrative: In summary, this 38-year-old female G3, P2 presents to the emergency department today with post miscarriage bleeding. On initial evaluation patient is hemodynamically stable though her heart rate is nearly tachycardic, she is afebrile, mildly pale appearing, GCS 15, capillary refill less than 2 seconds, mild diffuse lower abdominal tenderness without rebound or guarding, nonfocal abdomen, exam with brisk bright red bleeding as well as large clots at the vaginal introitus. Differential diagnosis includes but is not limited to anemia, leukocytosis, hemorrhagic shock, miscarriage, retained products of conception, coagulopathy. Based on these concerns, I ordered serum labs, quantitative hCG, urine studies. Patient did not initially receive any medications in the ER. Labs demonstrate hemoglobin 12.9, most recent hemoglobin was over 15 however this was months ago. Unclear if patient has had a dramatic change in her hemoglobin recently. Mild leukocytosis with WBC 11.1, CMP with trace hyponatremia, no findings of kidney dysfunction, quantitative hCG, urinalysis, coag studies pending. Given patient became presyncopal in the ER while changing for her exam, she got quite tachycardic just upon standing demonstrating findings of orthostasis, she has large clots and significant bleeding on exam, I am concerned for brisk bleeding and significant blood loss. Patient's blood pressure has also decreased from the 130s to the low 100s, pulse pressure is narrowing which could be an early indicator of hemorrhagic shock. IV fluids started. I discussed this case with Dr. Alexander who is familiar with this patient. After reviewing labs and clinical findings, she is recommending emergent operative intervention. Patient's last time of oral intake was approximately 6 hours ago. Patient is amenable to this plan. OR team has been called. Patient also received Zofran in the ER. Patient is being taken to the OR by OB then admitted for continued management. Critical Care Critical Care Time Critical Care Time: Yes Attestation: On 01/23/24, the high probability of a clinically significant, sudden or life threatening deterioration of the following system(s) (hemodynamic) required my full and direct attention, intervention and personal management. The time I documented below is in addition to time spent performing reported procedures but includes the following listed in this critical care notation. Total Time Total Critical Care Time: 35
--- NOTE | 2024-01-24 00:06 | PC.NURSE ---
Requested surgery team to be called in.
--- NOTE | 2024-01-24 00:14 | PC.NURSE ---
Spoke with surgery team.
[2024-01-24] MEDS: LACTATED RINGERS 1000ML 1,000 ML 999 ML IV (00:18)
[2024-01-24] MEDS: ONDANSETRON 4MG/2ML VIAL 4 MG IV (00:19)
[2024-01-24 00:21] LABS: HCG,Quantitative 1940 mIU/ml (0-5.42)
[2024-01-24 00:31] LABS: Activated Partial Thrombo Time 28.8 seconds (22.8-30.6); INR 0.94 (0.9-1.1); Prothrombin Time 10.6 seconds (10.1-12.5)
--- NOTE | 2024-01-24 00:41 | EXP.HP ---
History of Present Illness *Admission Date: 01/24/24 *Reason for visit:: Heavy vaginal bleeding *History of present illness: Ms Rula Peters is a 38 yo who presented to [facility] ED with heavy vaginal bleeding with known spontaneous . Heavy bleeding started around 2100 on 01/23/24. She states she soaked through about 8 heavy pads in an hour. She denies cramping. Ultrasound 01/06/24 at [facility] demonstrated nonviable fetus within the uterine cavity. The fetus measured 6 weeks 2 days. There was no heart rate activity and no growth of the fetus in a week. The yolk sac had collapsed. There was a small subchorionic hemorrhage. Beta hcg quant on 12/18/23 was 50,579. Repeat beta hcg quant 01/05 was 15,246. She was seen in the office on 01/19. She reported period like bleeding and very mild cramping. Beta hcg quant 01/22/24 was 2893. She admits to dizziness/lightheadedness. No chest pain or shortness of breath. ABO RH: B positive [facility] Disclaimer: The information contained in this section may have been updated after the patient was seen, as this information can be updated by other users. Medical History (Updated 01/24/24 @ 00:53 by Ivette Alexander DO) Incomplete Spontaneous in first trimester Depression Gestational diabetes mellitus Surgical History Status post vaginal delivery History of tonsillectomy Family History Other Anemia Asthma Cancer Diabetes Heart attack Hyperlipidemia Hypertension Thyroid disorder Social History Smoking Status: Never smoker alcohol intake: never substance use type: denies use current occupational status: unemployed Travel in the last 8 weeks: None Other Medical History Have you received the Flu Vaccine for this season: No Have you received the Pneumonia Vaccine: No Review of Systems Review of Systems Review of systems:: pertinent systems reviewed and negative unless documented below ENT Ears, Nose, Mouth, and Throat: Reports dizziness *Genitourinary Comments: + heavy vaginal bleeding with known spontaneous *Neurologic Neurologic: Reports dizziness Meds Home Medications and Allergies Home Medications ?Medication ?Instructions ?Recorded ?Confirmed ?Type levothyroxine 125 mcg tablet 125 mcg PO DAILY #30 tabs 10/14/22 01/20/24 Rx (Synthroid) famotidine 40 mg tablet 40 mg PO BID #60 tabs 11/24/23 01/20/24 Rx lamotrigine 25 mg tablet 25 mg PO BID 0 days #75 tabs 12/17/23 01/20/24 Rx progesterone micronized 200 mg 200 mg vaginal HS #30 caps 12/19/23 01/20/24 Rx capsule (Prometrium) folic acid 1 mg tablet 1 mg PO DAILY #100 tabs 12/30/23 01/20/24 Rx oxcarbazepine 150 mg tablet 150 mg PO DAILY #30 tabs 12/30/23 01/20/24 Rx nitrofurantoin 100 mg PO BID 7 days #14 caps 01/05/24 01/20/24 Rx monohydrate/macrocrystals 100 mg capsule (Macrobid) ondansetron 4 mg disintegrating 4 mg PO Q6H #30 tabs 01/20/24 Rx tablet New Prescriptions to Start Prescriptions: Allergies Allergy/AdvReac Type Severity Reaction Status Date / Time montelukast [From [facility]] Allergy Mild Rash Verified 01/20/24 11:04 Penicillins Allergy Unknown Unknown Verified 01/20/24 11:04 allergy reaction Exam Data for Last 24 hours Vital signs and Labs for Last 24 Hours: Temp Pulse Resp BP Pulse Ox O2 Del Method 97.9 F 95 H 16 108/69 L 97 Room Air 01/23/24 23:17 01/24/24 00:00 01/23/24 23:17 01/24/24 00:00 01/24/24 00:00 01/23/24 23:17 Laboratory Results - last 24 hr 01/23/24 00:00: PT 10.6, INR 0.94, APTT 28.8 01/23/24 23:35: WBC 11.1 H, RBC 4.37, Hgb 12.9, Hct 38.3, MCV 87.8, MCH 29.5, MCHC 33.6, RDW 13.4, Plt Count 312, MPV 7.5, Neut % (Auto) 55.9, Lymph % (Auto) 32.6, [place] % (Auto) 4.9, Eos % (Auto) 5.4, Baso % (Auto) 1.3, Neut # (Auto) 6.2, Lymph # (Auto) 3.6, [place] # (Auto) 0.5, Eos # (Auto) 0.6 H, Baso # (Auto) 0.1, Sodium 132 L, Potassium 3.9, Chloride 108 H, Carbon Dioxide 24, Anion Gap 3.9 L, BUN 17, Creatinine 1.00, Estimated Creat Clear 81, Estimated GFR 62, Est GFR ( Amer) 75, Glucose 109 H, Calcium 9.3, Total Bilirubin 0.5, AST 23, ALT 18, Alkaline Phosphatase 51, Total Protein 7.0, Albumin 4.3, Globulin 2.7, Albumin/Globulin Ratio 1.6, HCG, Quant 1940 H I & O for Last 24 hours: Intake & Output 01/21/24 01/22/24 01/23/24 01/24/24 23:59 23:59 23:59 23:59 Weight 149 lb Constitutional Constitutional: no acute distress and cooperative *Routine HEENT Exam Head: Present normocephalic and atraumatic Eye: Absent conjunctivae pink ENT: Present mucous membranes moist *Routine Neck Exam Neck: Present full ROM *Routine Respiratory Exam Respiratory: Present CTA bilaterally and normal respiratory effort *Routine Cardiovascular Exam Cardiovascular: Present Normal S1, Normal S2 and tachycardia *Routine Abdominal Exam Abdominal: Present soft; Absent tenderness or distended *Routine Rectal Exam Rectal:: deferred *Routine Genitalia Exam Genitalia:: normal female *Routine Extremities Exam Extremities: Present full ROM; Absent edema Routine Psychiatric Exam Psychiatric: Present normal affect and cooperative Assessment and Plan *Assessment and plan (1) Incomplete : Status: Acute Category: Medical Code(s): O03.4 - Incomplete spontaneous without complication (2) Vaginal bleeding: Status: Acute Category: Medical Code(s): N93.9 - Abnormal uterine and vaginal bleeding, unspecified Plan Discussed heavy vaginal bleeding with incomplete spontaneous . ABO RH: B positive. Hgb 12.9 Discussed suction D&C with Rula and her family. Discussed surgery in detail. Discussed risks, benefits, alternatives, expectations and possible complications of surgery. Risks include but are not limited to bleeding; infection; uterine perforation; uterine synechiae; damage to adjacent structures (bowel, bladder, nerves, blood vessels, etc) (possibly requiring further intervention and/or longer hospital stay); VTE; risks with anesthesia; and risk of . All questions addressed and answered. Patient voiced understanding of risks and possible complications. Patient desires to proceed with surgery. Consent form signed.
--- NOTE | 2024-01-24 02:03 | P.OP_ITS ---
Date of procedure: 01/24/24 Pre-op Diagnosis:: 1. Incomplete spontaneous 2. Heavy vaginal bleeding 3. ABO RH: B positive Post-op Diagnosis:: 1. Incomplete spontaneous 2. Heavy vaginal bleeding 3. ABO RH: B positive Procedure performed:: Suction dilation and curettage Surgeon:: Ivette Alexander DO Fisheries Inspector(s):: N/a [employer]UR[employer] AL[employer] SUPERINTENDENT:: Cabrera Bustillos Anesthesia: GETA Estimated blood loss (mL): 100 Clinical Note:: Ms Rula Peters is a 38 yo who presented to [facility] ED with heavy vaginal bleeding with known spontaneous . Heavy bleeding started around 2100 on 01/23/24. She states she soaked through about 8 heavy pads in an hour. She denies cramping. Ultrasound 01/06/24 at [facility] demonstrated nonviable fetus within the uterine cavity. The fetus measured 6 weeks 2 days. There was no heart rate activity and no growth of the fetus in a week. The yolk sac had collapsed. There was a small subchorionic hemorrhage. Beta hcg quant on 12/18/23 was 50,579. Repeat beta hcg quant 01/05 was 15,246. She was seen in the office on 01/19. She reported period like bleeding and very mild cramping. Beta hcg quant 01/22/24 was 2893. She admits to dizziness/lightheadedness. No chest pain or shortness of breath. Operative findings:: 1. On bimanual exam, uterus approximately 8 week size, normal shape, midposition, no adnexal masses palpated Operative note:: Risks, benefits and alternatives were discussed with the patient. Risks include but are not limited to bleeding, infection, uterine perforation and VTE. Patient voiced understanding and agreed to proceed. She was wheeled back to the operating room and placed under general anesthesia without difficulty. She was placed in dorsal lithotomy position and prepped and draped in the normal sterile fashion. Straight catheter was used to drain the bladder. A bimanual exam was performed. A weighted Auvard was placed in the vaginal vault. Ringed forcep was placed on anterior lip of the cervix. Uterus sounded to 11. Cervical os was dilated. An 8 mm curved tamazight suction curettage was advanced into the uterine cavity without difficulty and was used to suction contents of the uterus. Following removal of the products of conception, a medium sized sharp curette was advanced into the uterine cavity and was used to scrape the uterine evans until a gritty texture was noted. At this time, the suction curette was advanced one more time to suction any remaining products of conception and blood. Instruments were removed from the vagina. Patient was awaken from anesthesia without difficulty. Products of conception will be sent to pathology as well as to an outside lab for chromosomal analysis. She was transported to recovery room in stable condition. Patient will be discharged home when awake and ambulating. She was given Doxycycline 200 mg PO x 1 dose postoperatively. She was also given instructions to follow-up in the office in 2 weeks. Condition: stable Disposition: same day Specimens:: Products of conception Complications:: None
[2024-01-24] MEDS: DOXYCYCLINE HYCL 100 MG TABLET 200 MG PO (02:28)
[2024-01-24 04:33] LABS: HIV (1&2) Antibody Rapid NONREACTIVE (NONREACTIVE)
[2024-01-25 08:10] LABS: HCV Ab Non Reactive (Non Reactive)
--- NOTE | 2024-01-27 07:42 | P.PNANES_ITS ---
[facility] Anesthesia Record Part II Anesthesia Record Part II Discharge Time: 02:15 Destination: Surgical Day Care (OP Surgery) PACU nurse assessment reviewed?: Yes Patient Condition:: Good Anesthesia Complications:: None Swallowing reflex intact?: Yes Airway Patency: Patent Cyanosis?: No Blood Pressure: 99/73 SaO2: 99 Respiratory Rate: 16 Pulse Rate: 111 Temperature: 98.2 F Mental Status: Alert & Oriented Pain level:: 0 Nausea and/or vomitting:: None Intake, IV Amount: 0 Hydration: Adequate
[2024-01-27 07:43] VITALS: BP 99/73; PULSE 111; RESP 16; TEMP 36.8; O2SAT 99
== END 2024-01-24 02:50 | disposition home or self-care (01) ==
LOC: ER 01-24 01:12 → SDC 01-24 01:17
PROVIDERS: Emergency Provider Emergency Medicine; PCP Internal Medicine; Visit Provider Obstetrics & Gynecology
PROC: (CPT 59812; principal; 2024-01-24 01:00)
DX: O03.4 Incomplete spontaneous abortion without complication (principal); N93.9 Abnormal uterine and vaginal bleeding, unspecified
CPT/HCPCS: 59812; 80053; 84702; 85025; 85610; 85730; 86803; 86850; 87389; 88305; J1100; J2250; J2405; J3010; J7120

== ENCOUNTER 2024-04-15 13:04 | Outpatient (CLI) | payer MEDICARE, OTHER, SELFPAY ==
--- NOTE | 2024-04-15 13:14 | US_ITS ---
PROCEDURE: US TRANSVAGINAL CLINICAL INDICATION: Check IUD placement/position COMPARISON: US POINT OF CARE US (ER ONLY) from 01/23/2024 FINDINGS: Transvaginal sonographic images of the pelvis were obtained. UTERUS: 10.3cm x 6.0cmx 5.2cm anteverted with a combined endometrial thickness of 5mm. There is an IUD within the uterine cavity that appears to be in the correct position. LEFT OVARY: 2.5cmx2.7 cmx3.0cm with a volume of 10.4ml. There is a collapsing follicle measuring 2.3 cm x 1.6 cm x 1.3 cm RIGHT OVARY: 3.9 cmx 1.8 cmx1.8 cm with a volume of 6.4ml. There is a corpus luteum measuring 1.6 cm x 1.1 cm x 1.6 cm. Both ovaries are seen and appear normal. Doppler flow to both ovaries are seen. There is a trace of fluid in the cul-de-sac. IMPRESSION: 1. Anteverted uterus bulky in size and normal in shape. The endometrium is thin. 2. There is an IUD within the uterine cavity that appears to be in the correct position. 3. Both ovaries are seen and appear normal. The left ovary has a collapsing follicle. The right ovary has a corpus luteum. 4. There is a trace of fluid in the cul-de-sac. Dictated by: Chuy Huang MD 04/16/2024 09:24 Chuy Huang MD in OV 04/16/2024 09:24
== END 2024-04-15 23:59 | disposition home or self-care (01) ==
LOC: RAD 13:10
PROVIDERS: PCP Internal Medicine; Visit Provider Obstetrics & Gynecology
DX: Z97.5 Presence of (intrauterine) contraceptive device (principal)
CPT/HCPCS: 76830

== ENCOUNTER 2024-07-13 08:58 | Outpatient (CLI) | payer MEDICARE, OTHER, SELFPAY ==
--- NOTE | 2024-07-13 09:00 | US_ITS ---
FINAL REPORT CLINICAL HISTORY: Right upper quadrant pain COMPARISON: 06/02/2023 FINDINGS: Sonographic images of the right upper quadrant were obtained. The pancreas is partially obscured. There is fatty infiltration of the liver. There are multiple tiny gallstones in the gallbladder without gallbladder wall thickening or distention. There is no evidence of biliary ductal dilatation.The common duct measures 3 mm. Limited images of the right kidney are unremarkable. IMPRESSION: Uncomplicated cholelithiasis. Fatty infiltration of the liver. Reviewed, Interpreted and Dictated by Houston Foster MD Transcribed by Krystal Harley Authenticated and [facility]
== END 2024-07-13 23:59 | disposition home or self-care (01) ==
LOC: RAD 09:01
PROVIDERS: PCP Internal Medicine; Visit Provider Internal Medicine
DX: R10.11 Right upper quadrant pain (principal)
CPT/HCPCS: 76705

== ENCOUNTER 2025-03-01 11:15 | Outpatient (CLI) | payer MEDICARE, OTHER, SELFPAY ==
--- OUTSIDE RECORDS SUMMARY | 2023-04-02 04:03 | XMS_ITS | Continuity of Care Document ---
Author Organization [facility] Address [address] [place] [address] Phone Care Team Providers Care Lipcoat Sprayer Name Role Phone Pritesh MSN, REIMBURSEMENT REPRESENTATIVE, Jocy Unavailable Unavai lable Allergies, Adverse Reactions, Alerts Substance Reaction Status Criticality MONTELUKAST SODIUM Hives / Skin Rash(moderate) Active No Information PENICILLIN Hives / Skin Rash(moderate) Active No Information Medications Medication Instructions Dosage Effective Dates (start - stop) Status Comments Flonase Allergy Relief 50 mcg/actuation nasal spray,suspension spray 1 - 2 spray by intranasal route every day in each nostril as needed 50-100 MCG - Active loratadine 10 mg tablet take 1 tablet by oral route every day 10 MG - Active lamotrigine 100 mg tablet take 1 tablet by oral route twice daily - Active promethazine 25 mg tablet take 1 tablet by oral route every 4 - 6 hours as needed 25 MG - Active levothyroxine 112 mcg capsule take 1 capsule by oral route every day 112 MCG - Active folic acid 1 mg tablet take 1 tablet by oral route every day 1 MG - Active + DHA 28 mg iron-975 mcg-200 mg oral pack TAKE ONE TABLET DAILY - Active Advance Directives Directive Yes / No Effective Date File Name No Information Encounters Encounter Description Practice Location Reason(s) For Visit Diagnoses Date Provider [facility], [address] [place], [address], [place] tel:[phone] No Information Mar- 0 3 Pritesh Sandra. [address] [place], [place], [id number] , [place]. tel: [phone] [facility], [address] [place], [address], [place] tel:[phone] [facility] Ear Pain (chief complaint) Encounter for screening for depressionEncounter for screening examination for other mental health and behavioral disordersBody mass index [BMI] 28.0-28.9, adultArthralgia of left temporomandibular jointOtalgia, left earCervicalgiaOther seasonal allergic rhinitis 3 Jonasaracelis Sandra. [address], [place], [id number] , [place]. tel: [phone] Family History Family Member Type Diagnosis Age At Onset Maternal grandmother Problem Thyroid disorder Mother Problem Alive and well Paternal grandmother Problem hx unknown Maternal grandfather Problem hx unknown Paternal grandfather Problem hx unknown Father Problem Alive and well Brother Problem Alive and well Son Problem Asthma Brother Problem Alive and well Son Problem Alive and well Father Problem Asthma Sister Problem Alive and well Immunizations Vaccine Date Status Comments Moderna refused Source: New Imm unization Record Influenza Flulaval refused Source: N ew Immunization Record Influenza, Seasonal administered Source: Other Registry Td (adult), adsorbed administered Source: Other Registry Hep B, adol High Ris administered Source: Other Registry Hep B, adol High Ris administered Source: Other Registry Hep B, adol High Ris administered Source: Other Registry MMR administered Source: Other R egistry Payers Payer name Insurance type Covered democrat ID Authoriza tion(s) [facility]- Medicare [id number] [facility]- Medicaid [employer] [place] [id number] Hc- Covered Under [place] CI [id number] [facility]- Medicare [id number] [facility]- Medicaid [employer] [place] [id number] Hc- Covered Under [place] CI [id number] Social History Type Description Quantity Date Captured Comments Alcohol Use Details Unknown Caffeine Use Details Unknown Tobacco Use Status No Information Smoking Status No Information Sex Female Sexual Orientation Straight or heterosexual Sep Gender Identity Female Chief Complaint And Reason For Visit No Information Plan Of Treatment Date Type Action Status Goal Unhealthy drug use screening due Goal CMP. Due on due Goal PAP. Due on due Goal TSH. Due on due Goal HIV screen. Due on due Goal Drug Abuse Screening Test (D AST-10). Due on due Goal Diabetes screening. Due on due Goal Hepatitis C Screening. Due o n due Goal Generalized Anxi ety Disorder - 7 (DOMINIK-7). Due on due Goal Influenza vaccine. Due on due Goal Depression screening. Due on due Goal CBC. Due on due Goal Follow up Plan f or abnormal BMI (Less than 18.5, greater than 25). Due on due Goal Obtain Height, Weight, and B KS. Due on due Goal Vitamin B12. Due on due Goal Pap/HPV testing. Due on due Goal HPV. Due on due Goal Vitamin D. Due on due Goal HPV testing. Due on due Goal Tobacco Use Cessation Counse ling. Due on due Goal Tobacco Use Screening. Due o n due Goal Influenza vaccine. Due on due Goal Generalized Anxi ety Disorder - 7 (DOMINIK-7). Due on due Goal Hepatitis C Screening. Due o n due Goal Diabetes screening. Due on due Goal Drug Abuse Screening Test (D AST-10). Due on due Goal HIV screen. Due on due Goal TSH. Due on due Goal PAP. Due on due Goal CMP. Due on due Goal Unhealthy drug use screening due Goal Depression screening. Due on due Goal CBC. Due on due Goal Follow up Plan f or abnormal BMI (Less than 18.5, greater than 25). Due on due Goal Obtain Height, Weight, and B KS. Due on due Goal Vitamin B12. Due on 023 due Goal Pap/HPV testing. Due on due Goal HPV. Due on due Goal Vitamin D. Due on due Goal HPV testing. Due on due Goal Tobacco Use Cessation Counse ling. Due on due Goal Tobacco Use Screening. Due o n due Goal Lifestyle education regardin g diet completed History Of Present Illness Encounter Date Complaint History Of Prese nt Illness Ear Pain Onset: sudden. S everity level is 8. Duration: 2 Days. The states the ear pain is in the left ear. It occurs constantly. The problem is worse. Associated symptoms include congestion (nasal), ear pressure, fullness in ears, mastoid bone tenderness and nausea. Pertinent negatives include bleeding from ear(s), cough, dizziness, drainage (clear), drainage (purulent), ear popping, fever, hearing deficit and redness/swelling outer ear. Additional information: Rula is a patient of Dr. Ku at [facility]. He is her PCP but was out of the office today. Left side of neck is painful to touch. Instructions Date Instruction Additional Infor darian Drink plenty of flui ds. Use nasal saline rinses. Nasal steroid spray if tolerated. Antihistamines as needed. Avoid allergy triggers when possible. Related to Other seasonal allergic rhinitis Physical activity as tolerated. Try to engage in some form of moderate physical activity for 30 minutes most days of the week. May modify activity as needed to reduce discomfort. Try to achieve/maintain a healthy body weight to reduce strain on musculoskeletal system. Verbalizes an understanding. Related to Body mass index [BMI] 28.0-28.9, adult rest, ice, compressi on as instructed to reduce pain and swelling Related to Cervicalgia Your pain is likely steming from your neck pain/muscle spasm.Use ice application and tylenol as needed for pain control.You can take OTC loratidine for allergies, and flonase prn Related to Otalgia, left ear May apply ice to are area 3-4 times daily for about 20 minutes.Take tylenol as per packing instructions for pain and only as needed. Not intended for chcf use. Related to Arthralgia of left temporomandibular joint Giving encouragement to exercise Related to Body mass index [BMI] 28.0-28.9, adult Lifestyle education regarding di et Related to Body mass index [BMI] 28.0-28.9, adult Assessments Type Assessment Date No Information
--- OUTSIDE RECORDS SUMMARY | 2023-04-02 04:03 | XMS_ITS | Continuity of Care Document ---
Author Organization [facility] Address [address] [place] [address] Phone Care Team Providers Care Order Expediter Name Role Phone Pritesh MSN, CHANNEL BUSINESS MANAGER, Jocy Unavailable Unavai lable Allergies, Adverse Reactions, [...] Location Reason(s) For Visit Diagnoses Date Provider [facility], [address] [place], [address], [place] tel:[phone] No Information Mar- 0 3 Pritesh Sandra. [address], [place], [id number] , [place]. tel: [phone] [facility], [address] [place], [address], [place] tel:[phone] [facility] KENDRA MASON Ear Pain (chief complaint) Encounter for screening for depressionEncounter for screening examination for other mental health and behavioral disordersBody mass index [BMI] 28.0-28.9, adultArthralgia of left temporomandibular jointOtalgia, left earCervicalgiaOther seasonal allergic rhinitis 3 Jonasaracelis Sandra. [address] [place], [place], [id number] , [place]. tel: [phone] Family History Family Member Type Diagnosis Age [...] egistry Payers Payer name Insurance type Covered alliance party ID Authoriza tion(s) [facility]- Medicare [id number] [facility]- Medicaid [employer] [place] [id number] Hc- Covered Under [place] CI [id number] [facility]- Medicare [id number] [facility]- Medicaid [employer] [place] [id number] Hc- Covered Under [place] CI [id number] Social History Type Description Quantity Date Captured Comments Alcohol Use Details Unknown Caffeine Use Details Unknown Tobacco Use Status No Information Smoking Status No Information Sex Female Sexual Orientation Straight or heterosexual Sep Gender Identity Female Chief Complaint And Reason For Visit No Information Plan Of Treatment Date Type Action Status Goal Tobacco Use Screening. Due o n due Goal Tobacco Use Cessation Counse ling. Due on due Goal HPV testing. Due on due Goal Vitamin D. Due on due Goal HPV. Due on due Goal Pap/HPV testing. Due on due Goal Vitamin B12. Due on due Goal Obtain Height, Weight, and B AL. Due on due Goal Follow up Plan f or abnormal BMI (Less than 18.5, greater than 25). Due on due Goal CBC. Due on due Goal Depression screening. Due on due Goal Unhealthy drug use [...] Goal Influenza vaccine. Due on due Goal Tobacco Use Screening. Due o n due Goal Tobacco Use Cessation Counse ling. Due on due Goal HPV testing. Due on due Goal Vitamin D. Due on due Goal HPV. Due on due Goal Pap/HPV testing. Due on due Goal Vitamin B12. Due on due Goal Obtain Height, Weight, and B AL. Due on due Goal Follow up Plan f or abnormal BMI (Less than 18.5, greater than 25). Due on due Goal CBC. Due on due Goal Depression screening. Due on due Goal Unhealthy drug use [...] Goal Influenza vaccine. Due on due Goal Lifestyle education regardin g diet [...] is a patient of Dr. Ku at [facility]. He is her PCP but was out [...] and only as needed. Not intended for long-term use. Related to Arthralgia of left temporomandibular joint Giving encouragement to exercise Related to Body mass index [BMI] 28.0-28.9, adult Lifestyle education regarding di et Related to Body mass index [BMI] 28.0-28.9, adult Assessments Type Assessment Date No Information
[2025-03-01 16:00] LABS: Hematocrit 44.0 % (37.0-47.0); Hemoglobin 14.3 g/dL (12.2-16.2); Immature Granulocytes % 0.3 %; Mean Corpuscular HGB Conc 32.5 g/dL (31.8-35.4); Mean Corpuscular Hemoglobin 28.3 pg (27.0-31.2); Mean Corpuscular Volume 87.0 fl (81-99); Nucleated Red Blood Cells % 0 %; Platelet Count 320 K/mm3 (142-424); Red Blood Count 5.06 M/mm3 (4.20-5.40); Red Cell Distribution Width-SD 41.2 fL; White Blood Count 9.6 K/mm3 (4.8-10.8)
[2025-03-01 16:24] LABS: Albumin Level 4.7 g/dl (3.5-5.0); Chloride 100 mmol/L (98-107); Potassium 4.2 mmoL/L (3.5-5.1); Sodium 140 mmol/L (136-145); Urine Pregnancy, HCG Qual. Negative (Negative)
[2025-03-01 16:27] LABS: Alanine Aminotransferase 21 U/L (12-78); Albumin/Globulin Ratio 1.6 (1.1-1.8); Alkaline Phosphatase 74 U/L (38-126); Anion Gap 19.2 mEq/L (5-15); Aspartate Amino Transferase 28 U/L (14-36); Bilirubin,Total 0.3 mg/dl (0.2-1.3); Blood Urea Nitrogen 11 mg/dl (7-17); Carbon Dioxide 25 mmol/L (22.0-30.0); Creatinine,Serum 0.80 mg/dl (0.52-1.04); Estimated Glomerular Filt Rate 80 ml/min (>60); GFR (African American) 97 ML/MIN (>60); Globulin 2.9 g/dL (1.3-3.2); Total Protein,Serum 7.6 g/dl (6.3-8.2)
[2025-03-01 16:28] LABS: Calcium 9.5 mg/dl (8.4-10.2); Glucose 84 mg/dl (74-100)
[2025-03-01 16:54] LABS: Thyroid Stimulating Hormone 5.04 uIU/mL (0.465-4.68)
--- OUTSIDE RECORDS SUMMARY | 2025-03-02 13:07 | XMS_ITS | Clinical Summary ---
Author Organization [facility] Address [address] [place] [address] Care Team Providers Care Piece Maker Name Role Phone Provider, No Known Primary Care Provider Unavail able Allergies Active Allergy Reactions Criticality Noted Date Comments Penicillins Hives Medium 12/06/2022 Reaction as a child Medications EQ Aspirin Adult Low Dose 81 MG EC tablet Take 1 tablet by mouth Daily. 3 Active lamoTRIgine (LaMICtal) 100 MG tablet Take 1 tablet by mouth 2 (Two) Times a Day. 3 Active ondansetron ODT (ZOFRAN-ODT) [address] 2 tablets on the tongue As Needed. 3 Active folic acid (FOLVITE) 1 MG tablet Take 2 tablets by mouth Daily. 3 Active levothyroxine (SYNTHROID, LEVOTHROID) 125 MCG tablet Take 1 tablet by mouth Daily. 3 Active Active Problems Problem Noted Date Diagnosed Date Antepartum multigravida of advanced maternal age 0812/06/2022 Seizure disorder during 12/06/2022 Hypothyroidism affecting 12/06/2022 Social History Tobacco Use Types Packs/Day Years Used Date Smoking Tobacco: Never Smokeless Tobacco: Never Alcohol Use Standard Drinks/Week Comments Never 0 (1 standard drink = 0.6 oz pur e alcohol) Abuse Screen Answer Date Recorded Unsafe at Home or Work/School Not on file Feels Threatened by Someone? Not on file 12/2022 Does Anyone Keep You from Co ntacting Others or Doint Things Outside the Home? Not on file 01/20/2023 Physical Sign of Abuse Present Not on file 1 Housing Stability Answer Date Recorded Current Living Arrangements Not on file 12/2022 Potentially Unsafe Housing Conditions Not on erica e 01/20/2023 Family and Community Support Answer Bacilio e Recorded Help with Day-to-Day Activities Not on file 01/20/2023 Lonely or Isolated Not on file 01/20/2023 Employment Answer Date Recorded Do you want help finding or keeping work or a nupur b? Not on file 01/20/2023 Disabilities Answer Date Recorded Concentrating, Remembering, or Making Decisions Difficulty Not on file 01/20/2023 Doing Errands Independently Difficulty Not on fi le 01/20/2023 Education Answer Date Recorded Help with school or training? Not on file Preferred Language Not on file 01/20/2023 Comments No Sex and Gender Information Value Date Recorded Sex Assigned at Not on file Legal Sex Female 4:36 PM EDT Gender Identity Not on file Sexual Orientation Not on file Last Filed Vital Signs Vital Sign Reading Time Taken Comments Blood Pressure 109/72 03/14/2023 9:54 AM EST Pulse - - Temperature - - Respiratory Rate - - Oxygen Saturation - - Inhaled Oxygen Concentration - - Weight 73.5 kg (162 lb) 03/14/2023 9:54 AM EST Height 165.1 cm (5' 5 ) 12/06/2022 10:33 AM EDT Body Mass Index 26.96 12/06/2022 10:33 AM EDT Plan of Treatment Health Maintenance Due Date Last Done Comments Annual Gynecologic Pelvic an d Breast Exam 1985 ANNUAL WELLNESS VISIT 11/04/2022 HEPATITIS C SCREENING 11/04/2022 INFLUENZA VACCINE 11/12/2024 01/25/2009 TDAP/TD VACCINES (3 - Td or Tdap) 02/07/2033 02/07/2023, 11/12/2002 Pneumococcal Vaccine 0-49 Aged Out No longer eligible based on patient's age to complete this topic Insurance MONICA SANCHEZ [id number] [facility] MEDICARE A & B Care Teams Piece Maker Relationship Specialty Start Date End Date [place], [place] [address] PCP - General 11/04/22
== END 2025-03-01 23:59 | disposition home or self-care (01) ==
LOC: LAB.DROPOF 03-02 12:12
PROVIDERS: PCP Internal Medicine; Visit Provider Internal Medicine
DX: G40.909 Epilepsy, unspecified, not intractable, without status epilepticus (principal); E03.9 Hypothyroidism, unspecified; K58.1 Irritable bowel syndrome with constipation; K21.9 Gastro-esophageal reflux disease without esophagitis; R11.0 Nausea
CPT/HCPCS: 80053; 81025; 84443; 85025